=== PATIENT | female | born 1965 | race Caucasian/White ===

== ENCOUNTER → 2018-08-13 | Day surgery (SDC) | payer BC ==
[~2018-08-13] MED LIST: Bupivacaine 0.25% 10 ML SDV ONE; EPINEPHrine 1 MG/ML 30 ML MDV IV ONE; EPINEPHrine 1 MG/ML SDV ONE; Lactated Ringers 1,000 ML IV SCH; Lidocaine 1% 2 ML ONE; Lidocaine 1%/Sod Bicarbonate in NS 8.4% 1 ML Syringe IDERM PRN; Ropivacaine 0.5% 5 MG/ML 30 ML SDV ONE; Sodium Chloride 0.9% 10 ML Syringe FLUSH PRN
--- NOTE | 2018-08-13 10:18 | PCM.SN ---
- Free Text/Narrative Note: Anesthesia Note: After discussing health history with patient, topic of adrenal insufficiency came about along with patient taking herbal supplement of cortisol. In review of chart no information noted in regards to the adrenal insufficiency. Discussion present with Danielle FITZGERALD, Dr. Arriola, Patient, and patient's , regarding further evaluation and follow up on patient's adrenal glands function is warranted and to the patient's best interest and safety. Patient exhibited emotional frustration, and concerns regarding financial/ insurance issues, time element for shoulder healing, etc... Anesthesia provided verbal reassurance and education on the benefits and priorities of patient's safety and ability to provide safety and excellence with optimal preoperative work up. Thank you, Britt BUSH
[2018-08-13 10:37] VITALS: BP 125/69
== END | disposition home or self-care (01) ==
LOC: JD.SDS 07:39
PROVIDERS: ATTEND Orthopaedic Surgery
DX: E27.40 Unspecified adrenocortical insufficiency (principal); Z53.29 Procedure and treatment not carried out because of patient's decision for other reasons; Z91.041 Radiographic dye allergy status; Z88.8 Allergy status to other drugs, medicaments and biological substances; Z91.048 Other nonmedicinal substance allergy status
CPT/HCPCS: J0171; J2001; J2795; J3490

== ENCOUNTER 2019-12-22 08:00 | Inpatient (IN) | payer BC ==
[~2019-12-22 08:00] MED LIST changes: -Bupivacaine 0.25% 10 ML SDV ONE; -EPINEPHrine 1 MG/ML 30 ML MDV IV ONE; -EPINEPHrine 1 MG/ML SDV ONE; -Lidocaine 1% 2 ML ONE; -Ropivacaine 0.5% 5 MG/ML 30 ML SDV ONE
[2019-12-23] MEDS ORDERED: Lactated Ringers 1,000 ML IV SCH (00:01)
[2019-12-23] MEDS ORDERED: Sodium Chloride 0.9% 10 ML Syringe FLUSH PRN (00:01)
[2019-12-23] MEDS ORDERED: Scopolamine 1.5 MG Transdermal Patch TRDERM SCH (00:01)
[2019-12-23] MEDS ORDERED: Lidocaine 1%/Sod Bicarbonate in NS 8.4% 1 ML Syringe IDERM PRN (00:01)
[2019-12-23] MEDS ORDERED: Ondansetron 4 MG/2 ML SDV IVPUSH PRN ×2 (07:23→14:19)
[2019-12-23] MEDS ORDERED: Morphine 2 MG/ML SYRINGE IVPUSH PRN (07:23)
[2019-12-23] MEDS ORDERED: Cyclobenzaprine 10 MG Tab PO PRN (07:23)
[2019-12-23] MEDS ORDERED: Sennosides 8.6 MG Tab PO PRN (07:23)
[2019-12-23] MEDS ORDERED: Bisacodyl 5 MG Tab PO PRN (07:23)
[2019-12-23] MEDS ORDERED: Naloxone 0.4 MG/ML SDV IVPUSH PRN (07:23)
[2019-12-23] MEDS ORDERED: Magnesium Hydroxide 400 MG/5 ML Susp 30 ML Cup PO PRN (07:23)
[2019-12-23] MEDS ORDERED: Pregabalin 25 MG Cap PO SCH (09:30)
[2019-12-23] MEDS ORDERED: Acetaminophen 325 MG Tab PO SCH (09:30)
[2019-12-23] MEDS ORDERED: oxyCODONE ER 10 MG TAB.ER PO SCH (09:30)
[2019-12-23] MEDS ORDERED: fentaNYL 100 MCG/2 ML SDV ONE (09:48)
--- NOTE | 2019-12-23 10:40 | PCM.PREANE ---
Preanesthetic Assessment - Procedure Proposed Procedure: right total hip arthroplasty - Anesthesia/Transfusion/Family Hx Anesthesia History: Prior Anesthesia Reaction Family History of Anesthesia Reaction: No Transfusion History: No Prior Transfusion(s) Intubation History: Unknown - Review of Systems General: No Symptoms Pulmonary: No Symptoms Cardiovascular: No Symptoms Gastrointestinal: No Symptoms Neurological: No Symptoms Other: Reports: Easy Bruising, Diabetes, Liver Problems (fatty liver), Thyroid Problems (goiter), Sinus Problem (plugged up alot), Throat Pain (when press on goiter) - Physical Assessment NPO Status Date: 12/22/19 NPO Status Time: 23:45 Vital Signs: Last Vital Signs Temp 98.2 F 12/23/19 09:50 Pulse 85 12/23/19 09:50 Resp 16 12/23/19 09:50 BP 126/75 12/23/19 09:50 Pulse Ox 96 12/23/19 09:50 Height: 5 ft 7 in Weight: 113.398 kg ASA Class: 2 Mental Status: Alert & Oriented x3 Airway Class: Mallampati = 1 Dentition: Reports: Normal Dentition Thyro-Mental Finger Breadths: 3 Mouth Opening Finger Breadths: 3 ROM/Head Extension: Full Lungs: Clear to Auscultation, Normal Respiratory Effort Cardiovascular: Regular Rate, Regular Rhythm - Lab Values: Laboratory Last Values POC Glucose 169 mg/dL (70-105) H 12/23/19 10:17 MRSA (PCR) Negative 12/07/19 12:31 - Allergies Allergies/Adverse Reactions: Allergies Allergy/AdvReac Type Severity Reaction Status Date / Time Iodinated Contrast Media Allergy Hives Verified 12/22/19 14:49 [Iodinated Contrast- Oral and IV Dye] mold Allergy Cannot Verified 12/22/19 14:49 Remember shellfish derived Allergy Cannot Verified 12/22/19 14:49 Remember thimerosal Allergy Cannot Verified 12/22/19 14:49 Remember mmr Allergy Cannot Uncoded 10/23/18 16:30 Remember - Blood Blood Available: Yes - Acknowledgements Anesthesia Type Planned: Spinal Pt an Appropriate Candidate for the Planned Anesthesia: Yes Alternatives and Risks of Anesthesia Discussed w Pt/Guardian: Yes Pt/Guardian Understands and Agrees with Anesthesia Plan: Yes PreAnesthesia Questionnaire HEENT History: Reports: Impaired Vision, Sinusitis, Other (See Below) Other HEENT History: deviated septum, sinus disease Cardiovascular History: Reports: Heart Murmur, Other (See Below) Other Cardiovascular History: lower extremity edema, ventricular bigeminy Respiratory History: Reports: Bronchitis, Recurrent Gastrointestinal History: Reports: Other (See Below) Other Gastrointestinal History: gilbert's syndrome, elevated bilirubin Genitourinary History: Reports: None CARDIOLOGY PHYSICIAN History: Reports: Ectopic , Polycystic Ovaries Musculoskeletal History: Reports: Other (See Below) Other Musculoskeletal History: right shoulder injury, right wrist injury, right meniscus tear with repair, shoulder disclocation, chronic hip pian, IT band tendonitis to the right Neurological History: Reports: Headaches, Chronic, Vertigo Psychiatric History: Reports: None Endocrine/Metabolic History: Reports: Diabetes, Type II, Obesity/BMI 30+, Vitamin D Deficiency, Other (See Below) Other Endocrine/Metabolic History: thyroid growth, adrenal insufficiency, cortisol deficiency Hematologic History: Reports: None Immunologic History: Reports: None Oncologic (Cancer) History: Reports: None Dermatologic History: Reports: Other (See Below) Other Dermatologic History: hand splinter abcesses, easy bruisibilty - Past Surgical History Head Surgeries/Procedures: Reports: None HEENT Surgical History: Reports: None, Adenoidectomy, Naso-Sinus Surgery, Tonsillectomy Cardiovascular Surgical History: Reports: None Respiratory Surgical History: Reports: None GI Surgical History: Reports: Appendectomy, Cholecystectomy, Colonoscopy, EGD Female Surgical History: Reports: D&C, Other (See Below) Other Female Surgeries/Procedures: bladder sling Male Surgical History: Reports: None Endocrine Surgical History: Reports: None Neurological Surgical History: Reports: None Musculoskeletal Surgical History: Reports: Arthroscopic Knee, Shoulder Surgery Oncologic Surgical History: Reports: None - SUBSTANCE USE Smoking Status *Q: Never Smoker Tobacco Use Within Last Twelve Months: No Second Hand Smoke Exposure: No Days Per Week of Alcohol Use: 0 Recreational Drug Use History: No - HOME MEDS Home Medications: Home Meds Potassium Chloride [Klor-Con 10] 10 meq PO BID 08/12/18 [History] metFORMIN HCl [Metformin HCl ER] 500 mg PO TID 08/12/18 [History] Adrenal Cap 1 cap PO DAILY 10/23/18 [History] Cholecalciferol (Vitamin D3) [Vitamin D3] 5,000 unit PO DAILY 10/23/18 [History] Estradiol [Estrogel] 1 dose TOP DAILY 12/22/19 [History] Furosemide 40 mg PO BID 12/22/19 [History] Magnesium Oxide [Magnesium] 500 mg PO BID 12/22/19 [History] Tobramycin/Dexamethasone [Tobradex Eye Drops] 1 drop EYEBOTH ASDIRECTED PRN [History] traMADol HCl [Tramadol HCl] 50 mg PO Q6H PRN 12/22/19 [History] - CURRENT (IN HOUSE) MEDS Current Meds: Current Medications Acetaminophen (Tylenol) 975 mg PO ONETIME [facility] Stop: 12/23/19 12:00 Bisacodyl (Dulcolax) 5 mg PO DAILY PRN PRN Reason: Constipation Cyclobenzaprine HCl (Flexeril) 10 mg PO TID PRN PRN Reason: Spasms Docusate Sodium (Colace) 100 mg PO BID FADI Famotidine (Pepcid) 20 mg PO Q12H [facility] Lactated Ringer's (Ringers, Lactated) 1,000 mls @ 125 mls/hr IV ASDIRECTED [facility] Stop: 12/23/19 23:00 Last Admin: 12/23/19 10:25 Dose: 125 mls/hr Cefazolin Sodium/Dextrose 2 gm (/ Premix) 50 mls @ 100 mls/hr IV Q8H [facility] Stop: 12/23/19 23:59 Ketorolac Tromethamine (Toradol) 15 mg IVPUSH Q6H PRN PRN Reason: Pain Lidocaine/Sodium Bicarbonate (Buffered Lidocaine 1% In Ns 8.4%) 0.25 ml IDERM ONETIME PRN PRN Reason: Prior to IV Start Stop: 12/23/19 18:00 Last Admin: 12/23/19 10:25 Dose: 0.25 ml Magnesium Hydroxide (Milk Of Magnesia) 30 ml PO BID PRN PRN Reason: Constipation Morphine Sulfate (Morphine) 2 mg IVPUSH Q2H PRN PRN Reason: Breakthrough Pain Naloxone HCl (Narcan) 0.1 mg IVPUSH Q5M PRN PRN Reason: Oversedation Ondansetron HCl (Zofran) 4 mg IVPUSH Q6H PRN PRN Reason: Nausea/Vomiting Oxycodone HCl (Oxycontin) 10 mg PO ONETIME [facility] Stop: 12/23/19 12:00 Oxycodone/Acetaminophen (Percocet 325-5 Mg) 1 - 2 tab PO Q4H PRN PRN Reason: Pain Pregabalin (Lyrica) 50 mg PO ONETIME [facility] Stop: 12/23/19 18:00 Rivaroxaban (Xarelto) 10 mg PO DAILY [facility] Scopolamine (Transderm-Scop) 1.5 mg TRDERM ONETIME [facility] Stop: 12/23/19 16:00 Senna (Senna) 8.6 mg PO BID PRN PRN Reason: Constipation Sodium Chloride (Saline Flush) 10 ml FLUSH ASDIRECTED PRN PRN Reason: Keep Vein Open Stop: 12/23/19 18:00 Discontinued Medications Morphine Sulfate 8 mg/Epinephrine HCl 0.3 mg/Cefuroxime Sodium 750 mg/Ketorolac Tromethamine 30 mg/Sodium Chloride 7.9 ml 0 mg .XX ONETIME ONE Stop: 12/23/19 10:01 Fentanyl (Sublimaze) Confirm Administered Dose 100 mcg .ROUTE .STK-MED ONE Stop: 12/23/19 09:49 Lactated Ringer's (Ringers, Lactated) 1,000 mls @ 125 mls/hr IV ASDIRECTED [facility] Stop: 12/22/19 23:00 Lidocaine/Sodium Bicarbonate (Buffered Lidocaine 1% In Ns 8.4%) 0.25 ml IDERM ONETIME PRN PRN Reason: Prior to IV Start Stop: 12/22/19 23:00 Sodium Chloride (Saline Flush) 10 ml FLUSH ASDIRECTED PRN PRN Reason: Keep Vein Open Stop: 12/22/19 23:00
[2019-12-23] MEDS ORDERED: Midazolam 1 MG/ML 2 ML SDV ONE ×2 (10:55→12:12)
[2019-12-23] MEDS ORDERED: Propofol 200 MG/20 ML SDV ONE ×2 (10:55→13:20)
--- NOTE | 2019-12-23 11:19 | PCM.CONS ---
H&P History of Present Illness - General Date of Service: 12/23/19 Admit Problem/Dx: Admission Diagnosis/Problem Admission Diagnosis/Problem Osteoarthritis of hip Source of Information: Patient, Old Records, Provider, RN, RN Notes Reviewed History Limitations: Reports: No Limitations - History of Present Illness Initial Comments - Free Text/Narative: Nelly Roberts is a 54 yo female patient of Dr. Arriola who is post-operative day 0 of right TKA. Hospital medicine was consulted for post-operative medical care of the following listed medical conditions. At this time she is resting comfortably in bed. Pain is controlled. She denies any chest pain, shortness of breath, palpitations, nausea, or vomiting. She is reporting some throat pain. She carries a history of: BPPV, Chronic low back pain, questionable hypercortisolemia, Hyperbilirubinemia, [place] disease, Cardiac murmur, Thyroid nodule, Vitamin D deficiency, Type II DM, Obesity, Bigeminy, TIA, Lower extremity edema, Headache, Hypokalemia, PCOS, Fatty liver disease, Goiter, Deviated septum, Recurrent Bronchitis, Ectopic , Vertigo, Adrenal insufficiency, Easy bruising, Prior bladder sling placement. She was never a smoker. She is a full code. Her primary care provider is Manoj Ford PA-C . - Related Data Allergies/Adverse Reactions: Allergies Allergy/AdvReac Type Severity Reaction Status Date / Time Iodinated Contrast Media Allergy Hives Verified 12/22/19 14:49 [Iodinated Contrast- Oral and IV Dye] mold Allergy Cannot Verified 12/22/19 14:49 Remember shellfish derived Allergy Cannot Verified 12/22/19 14:49 Remember thimerosal Allergy Cannot Verified 12/22/19 14:49 Remember mmr Allergy Cannot Uncoded 10/23/18 16:30 Remember Home Medications: Home Meds Potassium Chloride [Klor-Con 10] 10 meq PO BID 08/12/18 [History] metFORMIN HCl [Metformin HCl ER] 500 mg PO TID 08/12/18 [History] Adrenal Cap 1 cap PO DAILY 10/23/18 [History] Cholecalciferol (Vitamin D3) [Vitamin D3] 5,000 unit PO DAILY 10/23/18 [History] Estradiol [Estrogel] 1 dose TOP DAILY 12/22/19 [History] Furosemide 40 mg PO BID 12/22/19 [History] Magnesium Oxide [Magnesium] 500 mg PO BID 12/22/19 [History] Tobramycin/Dexamethasone [Tobradex Eye Drops] 1 drop EYEBOTH ASDIRECTED PRN [History] traMADol HCl [Tramadol HCl] 50 mg PO Q6H PRN 12/22/19 [History] Past Medical History HEENT History: Reports: Impaired Vision, Sinusitis, Other (See Below) Other HEENT History: deviated septum, sinus disease Cardiovascular History: Reports: Heart Murmur, Other (See Below) Other Cardiovascular History: lower extremity edema, ventricular bigeminy Respiratory History: Reports: Bronchitis, Recurrent Gastrointestinal History: Reports: Other (See Below) Other Gastrointestinal History: gilbert's syndrome, elevated bilirubin Genitourinary History: Reports: None TIRE REPAIRER History: Reports: Ectopic , Polycystic Ovaries Musculoskeletal History: Reports: Other (See Below) Other Musculoskeletal History: right shoulder injury, right wrist injury, right meniscus tear with repair, shoulder disclocation, chronic hip pian, IT band tendonitis to the right Neurological History: Reports: Headaches, Chronic, Vertigo Psychiatric History: Reports: None Endocrine/Metabolic History: Reports: Diabetes, Type II, Obesity/BMI 30+, Vitamin D Deficiency, Other (See Below) Other Endocrine/Metabolic History: thyroid growth, adrenal insufficiency, cortisol deficiency Hematologic History: Reports: None Immunologic History: Reports: None Oncologic (Cancer) History: Reports: None Dermatologic History: Reports: Other (See Below) Other Dermatologic History: hand splinter abcesses, easy bruisibilty - Past Surgical History Head Surgeries/Procedures: Reports: None HEENT Surgical History: Reports: None, Adenoidectomy, Naso-Sinus Surgery, Tonsillectomy Cardiovascular Surgical History: Reports: None Respiratory Surgical History: Reports: None GI Surgical History: Reports: Appendectomy, Cholecystectomy, Colonoscopy, EGD Female Surgical History: Reports: D&C, Other (See Below) Other Female Surgeries/Procedures: bladder sling Male Surgical History: Reports: None Endocrine Surgical History: Reports: None Neurological Surgical History: Reports: None Musculoskeletal Surgical History: Reports: Arthroscopic Knee, Shoulder Surgery Oncologic Surgical History: Reports: None Social & Family History - Tobacco Use Smoking Status *Q: Never Smoker Second Hand Smoke Exposure: No - Caffeine Use Caffeine Use: Reports: Coffee - Alcohol Use Days Per Week of Alcohol Use: 0 - Recreational Drug Use Recreational Drug Use: No Drug Use in Last 12 Months: No H&P Review of Systems - Review of Systems: Review Of Systems: See Below General: Reports: No Symptoms. Denies: Fever, Chills HEENT: Reports: Sore Throat. Denies: Headaches Pulmonary: Reports: No Symptoms. Denies: Shortness of Breath, Wheezing, Cough, Sputum Cardiovascular: Reports: Edema (chronic). Denies: Chest Pain, Palpitations Gastrointestinal: Reports: No Symptoms. Denies: Abdominal Pain, Constipation, Diarrhea, Nausea, Vomiting Genitourinary: Reports: No Symptoms. Denies: Pain Musculoskeletal: Reports: Leg Pain Skin: Reports: No Symptoms. Denies: Cyanosis Psychiatric: Reports: No Symptoms Neurological: Reports: Difficulty Walking, Gait Disturbance. Denies: Confusion Hematologic/Lymphatic: Reports: No Symptoms Immunologic: Reports: No Symptoms Exam - Exam Exam: See Below - Vital Signs Vital Signs: Last Vital Signs Temp 98.2 F 12/23/19 09:50 Pulse 85 12/23/19 09:50 Resp 16 12/23/19 09:50 BP 126/75 12/23/19 09:50 Pulse Ox 96 12/23/19 09:50 Weight: 250 lb - Exam Quality Assessment: Supplemental Oxygen, DVT Prophylaxis General: Alert, Oriented, Cooperative. No: Mild Distress HEENT: Conjunctiva Clear, EACs Clear, EOMI, Hearing Intact, Mucosa Moist & [place] , Normal Nasal Septum, Posterior Pharynx Clear, PERRLA Neck: Supple, Trachea Midline Lungs: Clear to Auscultation, Normal Respiratory Effort Cardiovascular: Regular Rate, Regular Rhythm, Systolic Murmur GI/Abdominal Exam: Normal Bowel Sounds, Soft, Non-Tender, No Distention (Female) Exam: Deferred Rectal (Female) Exam: Deferred Back Exam: Normal Inspection, Full Range of Motion Extremities: Normal Capillary Refill, Pedal Edema, Leg Pain, Limited Range of Motion, Other (Bandage in place on left leg. Bandage is dry and intact. Cooling pack in place.) Peripheral Pulses: 2+: Radial (L), Radial (R), Dorsalis Pedis (L), Dorsalis Pedis (R) Skin: Warm, Dry, Intact Neurological: Cranial Nerves Intact (Grossly ) Neuro Extensive - Mental Status: Alert, Oriented x3 - Patient Data Lab Results Last 24 hrs: Laboratory Results - last 24 hr 12/23/19 Range/Units 10:17 POC Glucose 169 H (70-105) mg/dL Sepsis Event Note - Focused Exam Vital Signs: Vital Signs Temp Pulse Resp BP Pulse Ox 12/23/19 09:50 98.2 F 85 16 126/75 96 Date Exam was Performed: 12/23/19 Time Exam was Performed: 16:00 Consult PN Assessment/Plan POD#: 0 Procedures: Procedures ANTINUCLEAR ANTIBODIES (09/15/19) ARTHROSCOP ROTATOR CUFF REPR (10/27/18) ASSAY OF FREE THYROXINE (08/05/19) ASSAY OF PREALBUMIN (12/08/19) ASSAY OF SERUM ALBUMIN (12/08/19) ASSAY OF SERUM POTASSIUM (11/18/19) ASSAY OF TROPONIN QUANT (10/27/18) ASSAY OF URINE CREATININE (12/10/19) ASSAY THYROID STIM HORMONE (08/05/19) BREAST TOMOSYNTHESIS BI (07/02/19) C-REACTIVE PROTEIN (09/15/19) CCP ANTIBODY (09/15/19) CHEST X-RAY 1 VIEW FRONTAL (08/07/15) CHEST X-RAY 2VW FRONTAL&LATL (04/15/17) CHORIONIC GONADOTROPIN ASSAY (08/07/15) COMPLETE CBC AUTOMATED (04/15/17) COMPLETE CBC W/AUTO DIFF WBC (12/08/19) COMPREHEN METABOLIC PANEL (11/10/19) CORTISOL FREE (12/10/19) CREATINE MB FRACTION (10/27/18) CT ABD & PELV W/CONTRAST (11/23/19) CT HEAD/BRAIN W/O DYE (08/07/15) CT MAXILLOFACIAL W/O DYE (10/26/14) DRAIN/INJ JOINT/BURSA W/O US (10/05/19) ELECTROCARDIOGRAM TRACING (10/27/18) EMERGENCY DEPT VISIT (08/07/15) GLYCOSYLATED HEMOGLOBIN TEST (12/08/19) HYDRATE IV INFUSION ADD-ON (08/07/15) LIPID PANEL (09/15/18) MED NUTRITION INDIV SUBSEQ (10/13/14) MEDICAL NUTRITION INDIV IN (09/13/14) METABOLIC PANEL TOTAL CA (12/08/19) MICROBE SUSCEPTIBLE RENETTA (10/16/18) MICROSOMAL ANTIBODY EACH (08/05/19) MR-STAPH DNA AMP PROBE (10/27/18) MRI BRAIN STEM W/O DYE (02/07/16) MRI JNT OF LWR EXTRE W/O DYE (09/02/14) MRI JOINT UPR EXTREM W/DYE (09/02/14) MRI JOINT UPR EXTREM W/O DYE (07/20/18) MRI LUMBAR SPINE W/O DYE (11/10/18) MRI NECK SPINE W/O DYE (10/15/19) NEEDLE LOCALIZATION BY XRAY (09/02/14) NEUROMUSCULAR REEDUCATION (10/03/15) PROTHROMBIN TIME (12/08/19) PT EVALUATION (09/18/15) RBC SED RATE AUTOMATED (09/15/19) RHEUMATOID FACTOR TEST QUAL (09/15/19) ROUTINE VENIPUNCTURE (12/08/19) SCR MAMMO BI INCL CAD (07/02/19) SHOULDER ARTHROSCOPY/SURGERY (10/27/18) THER/PROPH/DIAG INJ IV PUSH (08/07/15) THROMBOPLASTIN TIME PARTIAL (12/08/19) TOTAL CORTISOL (09/02/18) TX/PRO/DX INJ NEW DRUG ADDON (08/07/15) ULTRASOUND BREAST COMPLETE (09/03/19) URINALYSIS AUTO W/O SCOPE (03/01/19) URINALYSIS AUTO W/SCOPE (10/27/18) URINE BACTERIA CULTURE (10/16/18) URINE CULTURE/COLONY COUNT (10/16/18) URINE TEST (10/27/18) US EXAM OF HEAD AND NECK (09/03/18) VITAMIN D 25 HYDROXY (08/05/19) X-RAY EXAM CHEST 2 VIEWS (12/08/19) X-RAY EXAM HIP UNI 2-3 VIEWS (08/05/19) X-RAY EXAM NECK SPINE 2-3 VW (12/31/18) X-RAY EXAM OF SHOULDER (05/21/18) X-RAY EXAM OF WRIST (05/21/18) (1) S/P total knee arthroplasty SNOMED Code(s): 2567849362484, 677230267, 7697563810768 Code(s): Z96.659 - PRESENCE OF UNSPECIFIED ARTIFICIAL KNEE JOINT Priority: High Current Visit: Yes Qualifiers: Laterality: right Qualified Code(s): Z96.651 - Presence of right artificial knee joint (2) Osteoarthritis SNOMED Code(s): 870697037 Code(s): M19.90 - UNSPECIFIED OSTEOARTHRITIS, UNSPECIFIED SITE Priority: High Current Visit: Yes Qualifiers: Osteoarthritis location: knee Osteoarthritis type: primary Laterality: right Qualified Code(s): M17.11 - Unilateral primary osteoarthritis, right knee (3) Chronic lower back pain SNOMED Code(s): 150244290 Code(s): M54.5 - LOW BACK PAIN; G89.29 - OTHER CHRONIC PAIN Priority: Low Current Visit: No Qualifiers: Back pain laterality: unspecified Sciatica presence: unspecified whether sciatica present Qualified Code(s): M54.5 - Low back pain; G89.29 - Other chronic pain (4) Hyperbilirubinemia SNOMED Code(s): 09433715 Code(s): E80.6 - OTHER DISORDERS OF BILIRUBIN METABOLISM Priority: Medium Current Visit: No (5) [place] disease SNOMED Code(s): 30587926 Code(s): E80.4 - GILBERT SYNDROME Priority: Low Current Visit: No (6) Cardiac murmur SNOMED Code(s): 14610940 Code(s): R01.1 - CARDIAC MURMUR, UNSPECIFIED Priority: Low Current Visit : No (7) Thyroid nodule SNOMED Code(s): 904463434 Code(s): E04.1 - NONTOXIC SINGLE THYROID NODULE Priority: Low Current Visit: No (8) Vitamin D deficiency SNOMED Code(s): 14378021 Code(s): E55.9 - VITAMIN D DEFICIENCY, UNSPECIFIED Priority: Low Current Visit: No (9) Type II diabetes mellitus SNOMED Code(s): 26003947 Code(s): E11.9 - TYPE 2 DIABETES MELLITUS WITHOUT COMPLICATIONS Priority: High Current Visit: Yes Qualifiers: Diabetes mellitus director long term care insulin use: unspecified director long term care insulin use status Diabetes mellitus complication status: with other specified complication Qualified Code(s): E11.69 - Type 2 diabetes mellitus with other specified complication (10) Obesity SNOMED Code(s): 200727844, 107348724 Code(s): E66.9 - OBESITY, UNSPECIFIED Priority: Medium Current Visit: No Qualifiers: Obesity type: unspecified obesity type Obesity classification: adult class 2 (BMI 35 - 39.9) Serious obesity comorbidity presence: without serious comorbidity (11) PCOS (polycystic ovarian syndrome) SNOMED Code(s): 419182029 Code(s): E28.2 - POLYCYSTIC OVARIAN SYNDROME Priority: Medium Current Visit: No (12) Bigeminal rhythm SNOMED Code(s): 81720350 Code(s): I49.9 - CARDIAC ARRHYTHMIA, UNSPECIFIED Priority: Medium Current Visit: No (13) TIA (transient ischemic attack) SNOMED Code(s): 305354741 Code(s): G45.9 - TRANSIENT CEREBRAL ISCHEMIC ATTACK, UNSPECIFIED Priority: Low Current Visit: No (14) Lower extremity edema SNOMED Code(s): 886559262 Code(s): R60.0 - LOCALIZED EDEMA Priority: Low Current Visit: No (15) Headache SNOMED Code(s): 15250487 Code(s): R51 - HEADACHE Priority: Low Current Visit: No Qualifiers: Headache type: unspecified Headache chronicity pattern: unspecified pattern Intractability: not intractable Qualified Code(s): R51 - Headache (16) Hypokalemia SNOMED Code(s): 06106843 Code(s): E87.6 - HYPOKALEMIA Priority: Medium Current Visit: No (17) History of ectopic SNOMED Code(s): 773923659, 780920226 Code(s): Z87.59 - PERSONAL HISTORY OF COMP OF PREG, CHLDBRTH AND THE PUERP Priority: Low Current Visit: No (18) Vertigo SNOMED Code(s): 403381861 Code(s): R42 - DIZZINESS AND GIDDINESS Priority: Low Current Visit: No (19) Goiter SNOMED Code(s): 5845897 Code(s): E04.9 - NONTOXIC GOITER, UNSPECIFIED Priority: Low Current Visit : No (20) Easy bruising Priority: Low Current Visit: No (21) Adrenal insufficiency SNOMED Code(s): 337153312 Code(s): E27.40 - UNSPECIFIED ADRENOCORTICAL INSUFFICIENCY Priority: Medium Current Visit: No Problem List Initiated/Reviewed/Updated: Yes Plan: I/P: Acute: S/P right total knee arthroplasty - post-operative day 0 -DVT prophylaxis and pain management per primary care team -PT/OT -IS/RT -Monitor oxygen saturation -Titrate oxygen as needed -Home medications reviewed -Vital signs stable -Monitor labs -Pre-operative Hgb was 13.8 -Pre-operative GFR was >60 -Pre-operative potassium was 3.4 -Pre-operative A1C was 7.5% -Pre-operative 12-lead EKG shows sinus rhythm with borderline Q-wave in inferior leads. -Baseline bigeminy -Bigeminy, trigeminy, and PACs noted in surgery Osteoarthritis of right knee -Pain management per primary care team Chronic: BPPV Chronic low back pain Suspected hypercortisolemia (listed as cortisol deficiency in pre-op note but this is inaccurate, verified with PCP and endocrinology note) Hyperbilirubinemia [place] disease Cardiac murmur Thyroid nodule Vitamin D deficiency Type II DM, Obesity Bigeminy TIA Lower extremity edema Headache Hypokalemia PCOS Fatty liver disease Goiter Deviated septum Recurrent Bronchitis Ectopic Vertigo Adrenal insufficiency Easy bruising Prior bladder sling placement Plan: Telemetry CM for discharge planning GI prophylaxis Home medications as indicated Other orders as listed above Routine AM labs She is a full code. Her PCP is Manoj Ford PA-C. Thank you for allowing us to participate in the care of this patient!! Requesting Provider: Dr. Arriola Date Consult Requested: 12/23/19 Patient History Reviewed: Yes Admission H&P Reviewed: Yes Notified Requestor: Yes
[2019-12-23] MEDS ORDERED: ceFAZolin 1 GM Vial ONE (11:24)
[2019-12-23] MEDS ORDERED: Lactated Ringers 1,000 ML ONE ×2 (11:49→13:21)
[2019-12-23] MEDS: ceFAZolin 1 GM Vial ONE ×2 (13:04→13:29)
[2019-12-23] MEDS: Morphine 8 MG, EPINEPHrine 0.3 MG, Cefuroxime 750 MG, Ketorolac 30 MG, Sodium Chloride ... ONE ×15 (13:11→15:18)
[2019-12-23] MEDS ORDERED: Phenylephrine/Normal Saline 100 MCG/ML 10 ML Syringe ONE (13:11)
[2019-12-23] MEDS: Bupivacaine 0.25% 10 ML SDV ONE ×2 (13:11→13:33)
[2019-12-23] MEDS: Vancomycin 1 GM SDV ONE ×2 (13:12→13:34)
[2019-12-23] MEDS ORDERED: Dexamethasone/Tobramycin 0.1-0.3% Ophth Susp 5 ML Bottle EYEBOTH PRN (14:11)
[2019-12-23] MEDS ORDERED: HYDROmorphone 0.5 MG/0.5 ML Syringe IVPUSH PRN (14:19)
[2019-12-23] MEDS ORDERED: fentaNYL 100 MCG/2 ML SDV IVPUSH PRN (14:19)
--- NOTE | 2019-12-23 14:22 | PCM.POSTAN ---
POST ANESTHESIA ASSESSMENT - MENTAL STATUS Mental Status: Alert, Oriented - VITAL SIGNS Vital Signs: Last Vital Signs Temp 98.2 F 12/23/19 09:50 Pulse 85 12/23/19 09:50 Resp 16 12/23/19 09:50 BP 126/75 12/23/19 09:50 Pulse Ox 96 12/23/19 09:50 109/76 15 90 97.7 100% - RESPIRATORY Respiratory Status: Respiratory Rate WNL, Airway Patent, O2 Saturation Stable, Supplemental Oxygen - CARDIOVASCULAR CV Status: Pulse Rate WNL, Blood Pressure Stable - GASTROINTESTINAL GI Status: No Symptoms - PAIN Pain Score: 0 - POST OP HYDRATION Hydration Status: Adequate & Stable
--- NOTE | 2019-12-23 16:00 | CR ---
Pelvis and right hip: AP view of the pelvis was obtained as well as crosstable lateral view of the right hip. Comparison: Prior pelvis and left hip study of 08/05/19. Recently placed right hip prosthesis is seen. Components are aligned. Underlying bony structures are intact. No additional abnormality is seen other than soft tissue air from the surgical suture. Impression: 1. Recently placed right hip prosthesis. 2. Nothing acute is otherwise seen. Diagnostic code #2 This report was dictated in [place] Standard Time
[2019-12-23] MEDS: Ketorolac 15 MG/ML SDV IVPUSH PRN (16:05)
[2019-12-23] MEDS: Acetaminophen/oxyCODONE 325-5 MG Tab PO PRN ×2 (16:54→22:32)
[2019-12-23] MEDS: Insulin Lispro 100 Units/ML 3 ML Vial SUBCUT SCH ×2 (17:09→22:10)
[2019-12-23] MEDS ORDERED: ceFAZolin 2 GM in Premix Bag 1 BAG IV SCH (19:00)
[2019-12-23] MEDS: Magnesium Oxide 400 MG Tab PO SCH (20:23)
[2019-12-23] MEDS: Potassium Chloride 10 MEQ Tab.ER PO SCH (20:23)
[2019-12-23] MEDS: Famotidine 20 MG Tab PO SCH (20:24)
[2019-12-23] MEDS: Docusate Sodium 100 MG Cap PO SCH (20:24)
[2019-12-23] MEDS: ceFAZolin 2 GM in Premix Bag 1 BAG IV SCH (20:25)
[2019-12-24] MEDS: ceFAZolin 2 GM in Premix Bag 1 BAG IV SCH ×2 (03:13→11:21)
[2019-12-24] MEDS: Acetaminophen/oxyCODONE 325-5 MG Tab PO PRN ×2 (03:23→08:46)
[2019-12-24] MEDS: Insulin Lispro 100 Units/ML 3 ML Vial SUBCUT SCH ×2 (06:35→12:09)
--- NOTE | 2019-12-24 07:16 | PCM.CONSN ---
- General Info Date of Service: 12/24/19 Admission Dx/Problem (Free Text): Admission Diagnosis/Problem Admission Diagnosis/Problem Osteoarthritis of hip Functional Status: Reports: Pain Controlled, Tolerating Diet, Ambulating, Urinating, Incentive Spirometry. Denies: New Symptoms - Review of Systems General: Reports: No Symptoms. Denies: Fever, Chills HEENT: Reports: Sore Throat (lozenge ordered ). Denies: Headaches Pulmonary: Reports: No Symptoms. Denies: Shortness of Breath, Cough, Wheezing Cardiovascular: Reports: No Symptoms. Denies: Chest Pain, Palpitations Gastrointestinal: Reports: No Symptoms. Denies: Abdominal Pain, Constipation, Diarrhea, Nausea, Vomiting Genitourinary: Reports: No Symptoms. Denies: Pain Musculoskeletal: Reports: Leg Pain (right ) Skin: Reports: No Symptoms. Denies: Cyanosis Neurological: Reports: Difficulty Walking, Gait Disturbance. Denies: Confusion Psychiatric: Reports: No Symptoms - Patient Data Vitals - Most Recent: Last Vital Signs Temp 97.5 F 12/24/19 03:27 Pulse 90 12/24/19 03:27 Resp 18 12/24/19 03:27 BP 112/65 12/24/19 03:27 Pulse Ox 94 L 12/24/19 05:49 Weight - Most Recent: 257 lb 11.2 oz I&O - Last 24 Hours: Intake & Output 12/23/19 12/24/19 12/24/19 22:59 06:59 14:59 Intake Total 490 900 Output Total 600 Balance 490 300 Lab Results Last 24 Hours: Laboratory Results - last 24 hr 12/23/19 12/23/19 12/23/19 Range/Units 10:17 10:19 16:55 WBC (3.98-10.04) K/mm3 RBC (3.98-5.22) M/mm3 Hgb (11.2-15.7) gm/dl Hct (34.1-44.9) % MCV (79.4-94.8) fl MCH (25.6-32.2) pg MCHC (32.2-35.5) g/dl RDW Std Deviation (36.4-46.3) fL Plt Count (182-369) K/mm3 MPV (9.4-12.3) fl Sodium (136-145) mEq/L Potassium (3.5-5.1) mEq/L Chloride (98-107) mEq/L Carbon Dioxide (21-32) mEq/L Anion Gap (5-15) BUN (7-18) mg/dL Creatinine (0.55-1.02) mg/dL Est Cr Clr Drug Dosing mL/min Estimated GFR (MDRD) (>60) mL/min BUN/Creatinine Ratio (14-18) Glucose (74-106) mg/dL POC Glucose 169 H 156 H (70-105) mg/dL Calcium (8.5-10.1) mg/dL Magnesium (1.8-2.4) mg/dl Total Bilirubin (0.2-1.0) mg/dL AST (15-37) U/L ALT (14-59) U/L Alkaline Phosphatase (46-116) U/L Total Protein (6.4-8.2) g/dl Albumin (3.4-5.0) g/dl Globulin gm/dL Albumin/Globulin Ratio (1-2) Blood Type A NEGATIVE Gel Antibody Screen Negative 12/23/19 12/24/19 12/24/19 Range/Units 20:33 05:05 05:05 WBC 7.91 (3.98-10.04) K/mm3 RBC 4.00 (3.98-5.22) M/mm3 Hgb 11.6 D (11.2-15.7) gm/dl Hct 35.6 (34.1-44.9) % MCV 89.0 (79.4-94.8) fl MCH 29.0 (25.6-32.2) pg MCHC 32.6 (32.2-35.5) g/dl RDW Std Deviation 46.9 H (36.4-46.3) fL Plt Count 177 L (182-369) K/mm3 MPV 9.4 (9.4-12.3) fl Sodium 136 (136-145) mEq/L Potassium 4.0 (3.5-5.1) mEq/L Chloride 101 (98-107) mEq/L Carbon Dioxide 27 (21-32) mEq/L Anion Gap 12.0 (5-15) BUN 24 H (7-18) mg/dL Creatinine 0.8 (0.55-1.02) mg/dL Est Cr Clr Drug Dosing 78.18 mL/min Estimated GFR (MDRD) > 60 (>60) mL/min BUN/Creatinine Ratio 30.0 H (14-18) Glucose 179 H (74-106) mg/dL POC Glucose 156 H (70-105) mg/dL Calcium 8.4 L (8.5-10.1) mg/dL Magnesium (1.8-2.4) mg/dl Total Bilirubin 1.2 H (0.2-1.0) mg/dL AST 43 H (15-37) U/L ALT 40 (14-59) U/L Alkaline Phosphatase 60 (46-116) U/L Total Protein 5.9 L (6.4-8.2) g/dl Albumin 3.0 L (3.4-5.0) g/dl Globulin 2.9 gm/dL Albumin/Globulin Ratio 1.0 (1-2) Blood Type Gel Antibody Screen 12/24/19 12/24/19 Range/Units 05:05 06:21 WBC (3.98-10.04) K/mm3 RBC (3.98-5.22) M/mm3 Hgb (11.2-15.7) gm/dl Hct (34.1-44.9) % MCV (79.4-94.8) fl MCH (25.6-32.2) pg MCHC (32.2-35.5) g/dl RDW Std Deviation (36.4-46.3) fL Plt Count (182-369) K/mm3 MPV (9.4-12.3) fl Sodium (136-145) mEq/L Potassium (3.5-5.1) mEq/L Chloride (98-107) mEq/L Carbon Dioxide (21-32) mEq/L Anion Gap (5-15) BUN (7-18) mg/dL Creatinine (0.55-1.02) mg/dL Est Cr Clr Drug Dosing mL/min Estimated GFR (MDRD) (>60) mL/min BUN/Creatinine Ratio (14-18) Glucose (74-106) mg/dL POC Glucose 142 H (70-105) mg/dL Calcium (8.5-10.1) mg/dL Magnesium 1.9 (1.8-2.4) mg/dl Total Bilirubin (0.2-1.0) mg/dL AST (15-37) U/L ALT (14-59) U/L Alkaline Phosphatase (46-116) U/L Total Protein (6.4-8.2) g/dl Albumin (3.4-5.0) g/dl Globulin gm/dL Albumin/Globulin Ratio (1-2) Blood Type Gel Antibody Screen Med Orders - Current: Current Medications Bisacodyl (Dulcolax) 5 mg PO DAILY PRN PRN Reason: Constipation Cholecalciferol (Vitamin D3) 5,000 unit PO DAILY [facility] Cyclobenzaprine HCl (Flexeril) 10 mg PO TID PRN PRN Reason: Spasms Docusate Sodium (Colace) 100 mg PO BID [facility] Last Admin: 12/23/19 20:24 Dose: 100 mg Famotidine (Pepcid) 20 mg PO Q12H [facility] Last Admin: 12/23/19 20:24 Dose: 20 mg Cefazolin Sodium/Dextrose 2 gm (/ Premix) 50 mls @ 100 mls/hr IV Q8H [facility] Stop: 12/24/19 12:29 Last Admin: 12/24/19 03:13 Dose: 100 mls/hr Insulin Human Lispro (Humalog) 0 unit SUBCUT QIDACANDBED [facility]; Protocol Last Admin: 12/24/19 06:35 Dose: Not Given Ketorolac Tromethamine (Toradol) 15 mg IVPUSH Q6H PRN PRN Reason: Pain Last Admin: 12/23/19 16:05 Dose: 15 mg Magnesium Hydroxide (Milk Of Magnesia) 30 ml PO BID PRN PRN Reason: Constipation Magnesium Oxide (Magnesium Oxide) 400 mg PO BID [facility] Last Admin: 12/23/19 20:23 Dose: 400 mg Morphine Sulfate (Morphine) 2 mg IVPUSH Q2H PRN PRN Reason: Breakthrough Pain Naloxone HCl (Narcan) 0.1 mg IVPUSH Q5M PRN PRN Reason: Oversedation Ondansetron HCl (Zofran) 4 mg IVPUSH Q6H PRN PRN Reason: Nausea/Vomiting Oxycodone/Acetaminophen (Percocet 325-5 Mg) 1 - 2 tab PO Q4H PRN PRN Reason: Pain Last Admin: 12/24/19 03:23 Dose: 2 tab Potassium Chloride (Klor-Con 10) 10 meq PO BID [facility] Last Admin: 12/23/19 20:23 Dose: 10 meq Rivaroxaban (Xarelto) 10 mg PO DAILY [facility] Senna (Senna) 8.6 mg PO BID PRN PRN Reason: Constipation Tobramycin/Dexamethasone (Tobradex Ophth Susp) 0 ml EYEBOTH ASDIRECTED PRN PRN Reason: as directed Discontinued Medications Acetaminophen (Tylenol) 975 mg PO ONETIME [facility] Stop: 12/23/19 12:00 Bupivacaine HCl (Sensorcaine-Mpf 0.25%) Confirm Administered Dose 30 ml .ROUTE .STK-MED ONE Stop: 12/23/19 11:26 Last Admin: 12/23/19 13:33 Dose: 30 ml Cefazolin Sodium (Ancef) Confirm Administered Dose 2 gm .ROUTE .STK-[facility] Stop: 12/23/19 10:59 Last Admin: 12/23/19 13:29 Dose: 2 gm Cefazolin Sodium (Ancef) Confirm Administered Dose 2 gm .ROUTE .[facility] Stop: 12/23/19 11:25 Morphine Sulfate 8 mg/Epinephrine HCl 0.3 mg/Cefuroxime Sodium 750 mg/Ketorolac Tromethamine 30 mg/Sodium Chloride 7.9 ml 0 mg .XX ONETIME ONE Stop: 12/23/19 10:01 Last Admin: 12/23/19 15:18 Dose: Not Given Fentanyl (Sublimaze) Confirm Administered Dose 100 mcg .ROUTE .STK-[facility] ONE Stop: 12/23/19 09:49 Fentanyl (Sublimaze) 50 mcg IVPUSH Q5M PRN PRN Reason: Pain Hydromorphone HCl (Dilaudid) 0.5 mg IVPUSH Q10M PRN PRN Reason: Pain (severe 7-10) Lactated Ringer's (Ringers, Lactated) 1,000 mls @ 125 mls/hr IV ASDIRECTED [facility] Stop: 12/22/19 23:00 Lactated Ringer's (Ringers, Lactated) 1,000 mls @ 125 mls/hr IV ASDIRECTED [facility] Stop: 12/23/19 23:00 Last Admin: 12/23/19 10:25 Dose: 125 mls/hr Cefazolin Sodium/Dextrose 2 gm (/ Premix) 50 mls @ 100 mls/hr IV Q8H [facility] Stop: 12/24/19 11:29 Last Admin: 12/23/19 19:58 Dose: Not Given Lactated Ringer's (Ringers, Lactated) Confirm Administered Dose 1,000 mls @ as directed .ROUTE .ST-MED ONE Stop: 12/23/19 11:50 Lactated Ringer's (Ringers, Lactated) Confirm Administered Dose 1,000 mls @ as directed .ROUTE .[facility] Stop: 12/23/19 13:22 Lidocaine/Sodium Bicarbonate (Buffered Lidocaine 1% In Ns 8.4%) 0.25 ml IDERM ONETIME PRN PRN Reason: Prior to IV Start Stop: 12/22/19 23:00 Lidocaine/Sodium Bicarbonate (Buffered Lidocaine 1% In Ns 8.4%) 0.25 ml IDERM ONETIME PRN PRN Reason: Prior to IV Start Stop: 12/23/19 18:00 Last Admin: 12/23/19 10:25 Dose: 0.25 ml Midazolam HCl (Versed 1 Mg/Ml) Confirm Administered Dose 2 mg .ROUTE .[facility] Stop: 12/23/19 10:56 Midazolam HCl (Versed 1 Mg/Ml) Confirm Administered Dose 2 mg .ROUTE .[facility] Stop: 12/23/19 12:13 Ondansetron HCl (Zofran) 4 mg IVPUSH ONETIME PRN PRN Reason: Nausea/Vomiting Oxycodone HCl (Oxycontin) 10 mg PO ONETIME [facility] Stop: 12/23/19 12:00 Last Admin: 12/23/19 10:38 Dose: 10 mg Phenylephrine HCl (Phenylephrine In Ns 100 Mcg/Ml) Confirm Administered Dose 1 mg .ROUTE .[facility] Stop: 12/23/19 13:12 Pregabalin (Lyrica) 50 mg PO ONETIME [facility] Stop: 12/23/19 18:00 Last Admin: 12/23/19 10:37 Dose: 50 mg Propofol (Diprivan 20 Ml) Confirm Administered Dose 600 mg .ROUTE .[facility] Stop: 12/23/19 10:56 Propofol (Diprivan 20 Ml) Confirm Administered Dose 400 mg .ROUTE .ST-MED ONE Stop: 12/23/19 13:21 Scopolamine (Transderm-Scop) 1.5 mg TRDERM ONETIME [facility] Stop: 12/23/19 16:00 Last Admin: 12/23/19 10:39 Dose: 1.5 mg Sodium Chloride (Saline Flush) 10 ml FLUSH ASDIRECTED PRN PRN Reason: Keep Vein Open Stop: 12/22/19 23:00 Sodium Chloride (Saline Flush) 10 ml FLUSH ASDIRECTED PRN PRN Reason: Keep Vein Open Stop: 12/23/19 18:00 Tranexamic Acid (Cyklokapron) Confirm Administered Dose 1,000 mg .ROUTE .STK- MED ONE Stop: 12/23/19 11:25 Last Admin: 12/23/19 13:34 Dose: 1,000 mg Vancomycin HCl (Vancomycin) Confirm Administered Dose 1 gm .ROUTE .STK-MED ONE Stop: 12/23/19 11:25 Last Admin: 12/23/19 13:34 Dose: 1 gm - Exam Quality Assessment: DVT Prophylaxis General: Alert, Oriented, Cooperative, No Acute Distress HEENT: Pupils Equal, Pupils Reactive, Mucous Membr. Moist/[place] Neck: Supple, Trachea Midline Lungs: Clear to Auscultation, Normal Respiratory Effort Cardiovascular: Regular Rate, Regular Rhythm GI/Abdominal Exam: Normal Bowel Sounds, Soft, Non-Tender, No Distention (Female) Exam: Deferred Back Exam: Normal Inspection, Full Range of Motion Extremities: Normal Capillary Refill, Leg Pain, Limited Range of Motion, Other ( Bandage in place on right leg. Cooling pack in place. ) Peripheral Pulses: 2+: Radial (L), Radial (R), Dorsalis Pedis (L), Dorsalis Pedis (R) Skin: Warm, Dry, Intact Wound/Incisions: Dressing Dry and Intact Neurological: No New Focal Deficit Psy/Mental Status: Alert, Normal Affect, Normal Mood Sepsis Event Note - Evaluation Sepsis Screening Result: No Definite Risk - Focused Exam Vital Signs: Vital Signs Temp Temp Pulse Resp BP BP Pulse Ox 12/24/19 05:49 12/24/19 03:27 97.5 F 90 18 112/65 95 12/24/19 00:00 98.8 F 16 132/85 93 L 12/23/19 20:43 12/23/19 20:21 97.9 F 93 18 102/58 L 95 Pulse Ox Pulse Ox 12/24/19 05:49 94 L 12/24/19 03:27 12/24/19 00:00 12/23/19 20:43 92 L 12/23/19 20:21 Date Exam was Performed: 12/24/19 Time Exam was Performed: 11:33 Consult PN Assessment/Plan POD#: 1 Procedures: Procedures ANTINUCLEAR ANTIBODIES (09/15/19) ARTHROSCOP ROTATOR CUFF REPR (10/27/18) ASSAY OF FREE THYROXINE (08/05/19) ASSAY OF PREALBUMIN (12/08/19) ASSAY OF SERUM ALBUMIN (12/08/19) ASSAY OF SERUM POTASSIUM (11/18/19) ASSAY OF TROPONIN QUANT (10/27/18) ASSAY OF URINE CREATININE (12/10/19) ASSAY THYROID STIM HORMONE (08/05/19) BREAST TOMOSYNTHESIS BI (07/02/19) C-REACTIVE PROTEIN (09/15/19) CCP ANTIBODY (09/15/19) CHEST X-RAY 1 VIEW FRONTAL (08/07/15) CHEST X-RAY 2VW FRONTAL&LATL (04/15/17) CHORIONIC GONADOTROPIN ASSAY (08/07/15) COMPLETE CBC AUTOMATED (04/15/17) COMPLETE CBC W/AUTO DIFF WBC (12/08/19) COMPREHEN METABOLIC PANEL (11/10/19) CORTISOL FREE (12/10/19) CREATINE MB FRACTION (10/27/18) CT ABD & PELV W/CONTRAST (11/23/19) CT HEAD/BRAIN W/O DYE (08/07/15) CT MAXILLOFACIAL W/O DYE (10/26/14) DRAIN/INJ JOINT/BURSA W/O US (10/05/19) ELECTROCARDIOGRAM TRACING (10/27/18) EMERGENCY DEPT VISIT (08/07/15) GLYCOSYLATED HEMOGLOBIN TEST (12/08/19) HYDRATE IV INFUSION ADD-ON (08/07/15) LIPID PANEL (09/15/18) MED NUTRITION INDIV SUBSEQ (10/13/14) MEDICAL NUTRITION INDIV IN (09/13/14) METABOLIC PANEL TOTAL CA (12/08/19) MICROBE SUSCEPTIBLE RENETTA (10/16/18) MICROSOMAL ANTIBODY EACH (08/05/19) MR-STAPH DNA AMP PROBE (10/27/18) MRI BRAIN STEM W/O DYE (02/07/16) MRI JNT OF LWR EXTRE W/O DYE (09/02/14) MRI JOINT UPR EXTREM W/DYE (09/02/14) MRI JOINT UPR EXTREM W/O DYE (07/20/18) MRI LUMBAR SPINE W/O DYE (11/10/18) MRI NECK SPINE W/O DYE (10/15/19) NEEDLE LOCALIZATION BY XRAY (09/02/14) NEUROMUSCULAR REEDUCATION (10/03/15) PROTHROMBIN TIME (12/08/19) PT EVALUATION (09/18/15) RBC SED RATE AUTOMATED (09/15/19) RHEUMATOID FACTOR TEST QUAL (09/15/19) ROUTINE VENIPUNCTURE (12/08/19) SCR MAMMO BI INCL CAD (07/02/19) SHOULDER ARTHROSCOPY/SURGERY (10/27/18) THER/PROPH/DIAG INJ IV PUSH (08/07/15) THROMBOPLASTIN TIME PARTIAL (12/08/19) TOTAL CORTISOL (09/02/18) TX/PRO/DX INJ NEW DRUG ADDON (08/07/15) ULTRASOUND BREAST COMPLETE (09/03/19) URINALYSIS AUTO W/O SCOPE (03/01/19) URINALYSIS AUTO W/SCOPE (10/27/18) URINE BACTERIA CULTURE (10/16/18) URINE CULTURE/COLONY COUNT (10/16/18) URINE TEST (10/27/18) US EXAM OF HEAD AND NECK (09/03/18) VITAMIN D 25 HYDROXY (08/05/19) X-RAY EXAM CHEST 2 VIEWS (12/08/19) X-RAY EXAM HIP UNI 2-3 VIEWS (08/05/19) X-RAY EXAM NECK SPINE 2-3 VW (12/31/18) X-RAY EXAM OF SHOULDER (05/21/18) X-RAY EXAM OF WRIST (05/21/18) (1) S/P total knee arthroplasty SNOMED Code(s): 8581584385688, 307110236, 5712151423222 Code(s): Z96.659 - PRESENCE OF UNSPECIFIED ARTIFICIAL KNEE JOINT Priority: High Current Visit: Yes Qualifiers: Laterality: right Qualified Code(s): Z96.651 - Presence of right artificial knee joint (2) Osteoarthritis SNOMED Code(s): 012956999 Code(s): M19.90 - UNSPECIFIED OSTEOARTHRITIS, UNSPECIFIED SITE Priority: High Current Visit: Yes Qualifiers: Osteoarthritis location: knee Osteoarthritis type: primary Laterality: right Qualified Code(s): M17.11 - Unilateral primary osteoarthritis, right knee (3) Chronic lower back pain SNOMED Code(s): 132860962 Code(s): M54.5 - LOW BACK PAIN; G89.29 - OTHER CHRONIC PAIN Priority: Low Current Visit: No Qualifiers: Back pain laterality: unspecified Sciatica presence: unspecified whether sciatica present Qualified Code(s): M54.5 - Low back pain; G89.29 - Other chronic pain (4) Hyperbilirubinemia SNOMED Code(s): 03520667 Code(s): E80.6 - OTHER DISORDERS OF BILIRUBIN METABOLISM Priority: Medium Current Visit: No (5) Sheffield disease SNOMED Code(s): 61012773 Code(s): E80.4 - GILBERT SYNDROME Priority: Low Current Visit: No (6) Cardiac murmur SNOMED Code(s): 92062171 Code(s): R01.1 - CARDIAC MURMUR, UNSPECIFIED Priority: Low Current Visit : No (7) Thyroid nodule SNOMED Code(s): 858626607 Code(s): E04.1 - NONTOXIC SINGLE THYROID NODULE Priority: Low Current Visit: No (8) Vitamin D deficiency SNOMED Code(s): 18172454 Code(s): E55.9 - VITAMIN D DEFICIENCY, UNSPECIFIED Priority: Low Current Visit: No (9) Type II diabetes mellitus SNOMED Code(s): 50604986 Code(s): E11.9 - TYPE 2 DIABETES MELLITUS WITHOUT COMPLICATIONS Priority: High Current Visit: Yes Qualifiers: Diabetes mellitus long goods drier insulin use: unspecified long goods drier insulin use status Diabetes mellitus complication status: with other specified complication Qualified Code(s): E11.69 - Type 2 diabetes mellitus with other specified complication (10) Obesity SNOMED Code(s): 460782884, 358435413 Code(s): E66.9 - OBESITY, UNSPECIFIED Priority: Medium Current Visit: No Qualifiers: Obesity type: unspecified obesity type Obesity classification: adult class 2 (BMI 35 - 39.9) Serious obesity comorbidity presence: without serious comorbidity (11) PCOS (polycystic ovarian syndrome) SNOMED Code(s): 806657812 Code(s): E28.2 - POLYCYSTIC OVARIAN SYNDROME Priority: Medium Current Visit: No (12) Bigeminal rhythm SNOMED Code(s): 75035624 Code(s): I49.9 - CARDIAC ARRHYTHMIA, UNSPECIFIED Priority: Medium Current Visit: No (13) TIA (transient ischemic attack) SNOMED Code(s): 785560856 Code(s): G45.9 - TRANSIENT CEREBRAL ISCHEMIC ATTACK, UNSPECIFIED Priority: Low Current Visit: No (14) Lower extremity edema SNOMED Code(s): 553441179 Code(s): R60.0 - LOCALIZED EDEMA Priority: Low Current Visit: No (15) Headache SNOMED Code(s): 80583448 Code(s): R51 - HEADACHE Priority: Low Current Visit: No Qualifiers: Headache type: unspecified Headache chronicity pattern: unspecified pattern Intractability: not intractable Qualified Code(s): R51 - Headache (16) Hypokalemia SNOMED Code(s): 90142042 Code(s): E87.6 - HYPOKALEMIA Priority: Medium Current Visit: No (17) History of ectopic SNOMED Code(s): 057707305, 007912545 Code(s): Z87.59 - PERSONAL HISTORY OF COMP OF PREG, CHLDBRTH AND THE PUERP Priority: Low Current Visit: No (18) Vertigo SNOMED Code(s): 500711850 Code(s): R42 - DIZZINESS AND GIDDINESS Priority: Low Current Visit: No (19) Goiter SNOMED Code(s): 4402484 Code(s): E04.9 - NONTOXIC GOITER, UNSPECIFIED Priority: Low Current Visit : No (20) Easy bruising Priority: Low Current Visit: No (21) Adrenal insufficiency SNOMED Code(s): 306039652 Code(s): E27.40 - UNSPECIFIED ADRENOCORTICAL INSUFFICIENCY Priority: Medium Current Visit: No Problem List Initiated/Reviewed/Updated: Yes My Orders Last 24 Hours: My Active Orders 12/23/19 14:39 Blood Glucose Check, Bedside [RC] QIDACANDBED 12/23/19 17:00 Insulin Lispro [HumaLOG] See Protocol SUBCUT QIDACANDBED Plan: I/P: Acute: S/P right total knee arthroplasty - post-operative day 1 -DVT prophylaxis and pain management per primary care team -PT/OT -IS/RT -Monitor oxygen saturation -Titrate oxygen as needed -Home medications reviewed -Vital signs stable -Monitor labs -Pre-operative Hgb was 13.8; Now 11.6 -Pre-operative GFR was >60; Now >60 -Pre-operative potassium was 3.4; Now 4.0 -Pre-operative A1C was 7.5% -Pre-operative 12-lead EKG shows sinus rhythm with borderline Q-wave in inferior leads. -Baseline bigeminy -Bigeminy, trigeminy, and PACs noted in surgery Osteoarthritis of right knee -Pain management per primary care team Chronic: BPPV Chronic low back pain Suspected hypercortisolemia (listed as cortisol deficiency in pre-op note but this is inaccurate, verified with PCP and endocrinology note) Hyperbilirubinemia Sheffield disease Cardiac murmur Thyroid nodule Vitamin D deficiency Type II DM, Obesity Bigeminy TIA Lower extremity edema Headache Hypokalemia PCOS Fatty liver disease Goiter Deviated septum Recurrent Bronchitis Ectopic Vertigo Adrenal insufficiency Easy bruising Prior bladder sling placement Plan: Telemetry CM for discharge planning GI prophylaxis Home medications as indicated Other orders as listed above Routine AM labs She is a full code. Her PCP is Manoj Ford PA-C. From a hospitalist standpoint Nelly is doing well. She has been up ambulating and working with PT/OT. She has urinated and is off of oxygen. She has been utilizing her IS. Her labs and vital signs remain stable. No concerns on telemetry. She has been eating. She is cleared for discharge pending primary team and PT/OT agreement. Thank you for allowing us to participate in the care of this patient!!
--- NOTE | 2019-12-24 07:42 | PCM48HPAN ---
Post Anesthesia Note - EVALUATION WITHIN 48HRS OF ANESTHETIC Vital Signs in Normal Range: Yes Patient Participated in Evaluation: Yes Respiratory Function Stable: Yes Airway Patent: Yes Cardiovascular Function Stable: Yes Hydration Status Stable: Yes Pain Control Satisfactory: Yes Nausea and Vomiting Control Satisfactory: Yes Mental Status Recovered: Yes Vital Signs: Last Vital Signs Temp 36.4 C 12/24/19 03:27 Pulse 90 12/24/19 03:27 Resp 18 12/24/19 03:27 BP 112/65 12/24/19 03:27 Pulse Ox 94 L 12/24/19 05:49 - COMMENTS/OBSERVATIONS Free Text/Narrative:: no anesthesia complications noted
[2019-12-24] MEDS: Magnesium Oxide 400 MG Tab PO SCH (08:45)
[2019-12-24] MEDS: Docusate Sodium 100 MG Cap PO SCH (08:45)
[2019-12-24] MEDS: Famotidine 20 MG Tab PO SCH (08:45)
[2019-12-24] MEDS: Potassium Chloride 10 MEQ Tab.ER PO SCH (08:46)
[2019-12-24] MEDS ORDERED: Cholecalciferol (Vitamin D3) 5,000 UNIT Tab PO SCH (09:00)
[2019-12-24] MEDS ORDERED: Rivaroxaban 10 MG Tab PO SCH (09:00)
--- NOTE | 2019-12-24 09:22 | PCM.SURGPN ---
- General Info Date of Service: 12/24/19 POD#: 1 Functional Status: Reports: Pain Controlled, Tolerating Diet, Ambulating, Urinating, Incentive Spirometry - Patient Data Vitals - Most Recent: Last Vital Signs Temp 98.1 F 12/24/19 07:35 Pulse 104 H 12/24/19 07:35 Resp 20 12/24/19 07:35 BP 130/53 L 12/24/19 07:35 Pulse Ox 91 L 12/24/19 07:35 Weight - Most Recent: 257 lb 11.2 oz I&O - Last 24 Hours: Intake & Output 12/23/19 12/24/19 12/24/19 22:59 06:59 14:59 Intake Total 490 900 Output Total 600 Balance 490 300 Lab Results Last 24 Hrs: Laboratory Results - last 24 hr 12/23/19 12/23/19 12/23/19 Range/Units 10:17 10:19 16:55 WBC (3.98-10.04) K/mm3 RBC (3.98-5.22) M/mm3 Hgb (11.2-15.7) gm/dl Hct (34.1-44.9) % MCV (79.4-94.8) fl MCH (25.6-32.2) pg MCHC (32.2-35.5) g/dl RDW Std Deviation (36.4-46.3) fL Plt Count (182-369) K/mm3 MPV (9.4-12.3) fl Sodium (136-145) mEq/L Potassium (3.5-5.1) mEq/L Chloride (98-107) mEq/L Carbon Dioxide (21-32) mEq/L Anion Gap (5-15) BUN (7-18) mg/dL Creatinine (0.55-1.02) mg/dL Est Cr Clr Drug Dosing mL/min Estimated GFR (MDRD) (>60) mL/min BUN/Creatinine Ratio (14-18) Glucose (74-106) mg/dL POC Glucose 169 H 156 H (70-105) mg/dL Calcium (8.5-10.1) mg/dL Magnesium (1.8-2.4) mg/dl Total Bilirubin (0.2-1.0) mg/dL AST (15-37) U/L ALT (14-59) U/L Alkaline Phosphatase (46-116) U/L Total Protein (6.4-8.2) g/dl Albumin (3.4-5.0) g/dl Globulin gm/dL Albumin/Globulin Ratio (1-2) Blood Type A NEGATIVE Gel Antibody Screen Negative 12/23/19 12/24/19 12/24/19 Range/Units 20:33 05:05 05:05 WBC 7.91 (3.98-10.04) K/mm3 RBC 4.00 (3.98-5.22) M/mm3 Hgb 11.6 D (11.2-15.7) gm/dl Hct 35.6 (34.1-44.9) % MCV 89.0 (79.4-94.8) fl MCH 29.0 (25.6-32.2) pg MCHC 32.6 (32.2-35.5) g/dl RDW Std Deviation 46.9 H (36.4-46.3) fL Plt Count 177 L (182-369) K/mm3 MPV 9.4 (9.4-12.3) fl Sodium 136 (136-145) mEq/L Potassium 4.0 (3.5-5.1) mEq/L Chloride 101 (98-107) mEq/L Carbon Dioxide 27 (21-32) mEq/L Anion Gap 12.0 (5-15) BUN 24 H (7-18) mg/dL Creatinine 0.8 (0.55-1.02) mg/dL Est Cr Clr Drug Dosing 78.18 mL/min Estimated GFR (MDRD) > 60 (>60) mL/min BUN/Creatinine Ratio 30.0 H (14-18) Glucose 179 H (74-106) mg/dL POC Glucose 156 H (70-105) mg/dL Calcium 8.4 L (8.5-10.1) mg/dL Magnesium (1.8-2.4) mg/dl Total Bilirubin 1.2 H (0.2-1.0) mg/dL AST 43 H (15-37) U/L ALT 40 (14-59) U/L Alkaline Phosphatase 60 (46-116) U/L Total Protein 5.9 L (6.4-8.2) g/dl Albumin 3.0 L (3.4-5.0) g/dl Globulin 2.9 gm/dL Albumin/Globulin Ratio 1.0 (1-2) Blood Type Gel Antibody Screen 12/24/19 12/24/19 Range/Units 05:05 06:21 WBC (3.98-10.04) K/mm3 RBC (3.98-5.22) M/mm3 Hgb (11.2-15.7) gm/dl Hct (34.1-44.9) % MCV (79.4-94.8) fl MCH (25.6-32.2) pg MCHC (32.2-35.5) g/dl RDW Std Deviation (36.4-46.3) fL Plt Count (182-369) K/mm3 MPV (9.4-12.3) fl Sodium (136-145) mEq/L Potassium (3.5-5.1) mEq/L Chloride (98-107) mEq/L Carbon Dioxide (21-32) mEq/L Anion Gap (5-15) BUN (7-18) mg/dL Creatinine (0.55-1.02) mg/dL Est Cr Clr Drug Dosing mL/min Estimated GFR (MDRD) (>60) mL/min BUN/Creatinine Ratio (14-18) Glucose (74-106) mg/dL POC Glucose 142 H (70-105) mg/dL Calcium (8.5-10.1) mg/dL Magnesium 1.9 (1.8-2.4) mg/dl Total Bilirubin (0.2-1.0) mg/dL AST (15-37) U/L ALT (14-59) U/L Alkaline Phosphatase (46-116) U/L Total Protein (6.4-8.2) g/dl Albumin (3.4-5.0) g/dl Globulin gm/dL Albumin/Globulin Ratio (1-2) Blood Type Gel Antibody Screen Med Orders - Current: Current Medications Bisacodyl (Dulcolax) 5 mg PO DAILY PRN PRN Reason: Constipation Cholecalciferol (Vitamin D3) 5,000 unit PO DAILY [facility] Last Admin: 12/24/19 08:46 Dose: 5,000 unit Cyclobenzaprine HCl (Flexeril) 10 mg PO TID PRN PRN Reason: Spasms Docusate Sodium (Colace) 100 mg PO BID [facility] Last Admin: 12/24/19 08:45 Dose: 100 mg Famotidine (Pepcid) 20 mg PO Q12H [facility] Last Admin: 12/24/19 08:45 Dose: 20 mg Cefazolin Sodium/Dextrose 2 gm (/ Premix) 50 mls @ 100 mls/hr IV Q8H [facility] Stop: 12/24/19 12:29 Last Admin: 12/24/19 03:13 Dose: 100 mls/hr Insulin Human Lispro (Humalog) 0 unit SUBCUT QIDACANDBED [facility]; Protocol Last Admin: 12/24/19 06:35 Dose: Not Given Ketorolac Tromethamine (Toradol) 15 mg IVPUSH Q6H PRN PRN Reason: Pain Last Admin: 12/23/19 16:05 Dose: 15 mg Magnesium Hydroxide (Milk Of Magnesia) 30 ml PO BID PRN PRN Reason: Constipation Magnesium Oxide (Magnesium Oxide) 400 mg PO BID [facility] Last Admin: 12/24/19 08:45 Dose: 400 mg Morphine Sulfate (Morphine) 2 mg IVPUSH Q2H PRN PRN Reason: Breakthrough Pain Naloxone HCl (Narcan) 0.1 mg IVPUSH Q5M PRN PRN Reason: Oversedation Ondansetron HCl (Zofran) 4 mg IVPUSH Q6H PRN PRN Reason: Nausea/Vomiting Oxycodone/Acetaminophen (Percocet 325-5 Mg) 1 - 2 tab PO Q4H PRN PRN Reason: Pain Last Admin: 12/24/19 08:46 Dose: 2 tab Potassium Chloride (Klor-Con 10) 10 meq PO BID [facility] Last Admin: 12/24/19 08:46 Dose: 10 meq Rivaroxaban (Xarelto) 10 mg PO DAILY [facility] Last Admin: 12/24/19 08:46 Dose: 10 mg Senna (Senna) 8.6 mg PO BID PRN PRN Reason: Constipation Tobramycin/Dexamethasone (Tobradex Ophth Susp) 0 ml EYEBOTH ASDIRECTED PRN PRN Reason: as directed Discontinued Medications Acetaminophen (Tylenol) 975 mg PO ONETIME [facility] Stop: 12/23/19 12:00 Bupivacaine HCl (Sensorcaine-Mpf 0.25%) Confirm Administered Dose 30 ml .ROUTE .STK-MED ONE Stop: 12/23/19 11:26 Last Admin: 12/23/19 13:33 Dose: 30 ml Cefazolin Sodium (Ancef) Confirm Administered Dose 2 gm .ROUTE .[facility] ONE Stop: 12/23/19 10:59 Last Admin: 12/23/19 13:29 Dose: 2 gm Cefazolin Sodium (Ancef) Confirm Administered Dose 2 gm .ROUTE .[facility] ONE Stop: 12/23/19 11:25 Morphine Sulfate 8 mg/Epinephrine HCl 0.3 mg/Cefuroxime Sodium 750 mg/Ketorolac Tromethamine 30 mg/Sodium Chloride 7.9 ml 0 mg .XX ONETIME ONE Stop: 12/23/19 10:01 Last Admin: 12/23/19 15:18 Dose: Not Given Fentanyl (Sublimaze) Confirm Administered Dose 100 mcg .ROUTE .[facility] ONE Stop: 12/23/19 09:49 Fentanyl (Sublimaze) 50 mcg IVPUSH Q5M PRN PRN Reason: Pain Hydromorphone HCl (Dilaudid) 0.5 mg IVPUSH Q10M PRN PRN Reason: Pain (severe 7-10) Lactated Ringer's (Ringers, Lactated) 1,000 mls @ 125 mls/hr IV ASDIRECTED [facility] Stop: 12/22/19 23:00 Lactated Ringer's (Ringers, Lactated) 1,000 mls @ 125 mls/hr IV ASDIRECTED [facility] Stop: 12/23/19 23:00 Last Admin: 12/23/19 10:25 Dose: 125 mls/hr Cefazolin Sodium/Dextrose 2 gm (/ Premix) 50 mls @ 100 mls/hr IV Q8H [facility] Stop: 12/24/19 11:29 Last Admin: 12/23/19 19:58 Dose: Not Given Lactated Ringer's (Ringers, Lactated) Confirm Administered Dose 1,000 mls @ as directed .ROUTE .[facility] ONE Stop: 12/23/19 11:50 Lactated Ringer's (Ringers, Lactated) Confirm Administered Dose 1,000 mls @ as directed .ROUTE .[facility] ONE Stop: 12/23/19 13:22 Lidocaine/Sodium Bicarbonate (Buffered Lidocaine 1% In Ns 8.4%) 0.25 ml IDERM ONETIME PRN PRN Reason: Prior to IV Start Stop: 12/22/19 23:00 Lidocaine/Sodium Bicarbonate (Buffered Lidocaine 1% In Ns 8.4%) 0.25 ml IDERM ONETIME PRN PRN Reason: Prior to IV Start Stop: 12/23/19 18:00 Last Admin: 12/23/19 10:25 Dose: 0.25 ml Midazolam HCl (Versed 1 Mg/Ml) Confirm Administered Dose 2 mg .ROUTE .STK-MED ONE Stop: 12/23/19 10:56 Midazolam HCl (Versed 1 Mg/Ml) Confirm Administered Dose 2 mg .ROUTE .STK-MED ONE Stop: 12/23/19 12:13 Ondansetron HCl (Zofran) 4 mg IVPUSH ONETIME PRN PRN Reason: Nausea/Vomiting Oxycodone HCl (Oxycontin) 10 mg PO ONETIME [facility] Stop: 12/23/19 12:00 Last Admin: 12/23/19 10:38 Dose: 10 mg Phenylephrine HCl (Phenylephrine In Ns 100 Mcg/Ml) Confirm Administered Dose 1 mg .ROUTE .STK-MED ONE Stop: 12/23/19 13:12 Pregabalin (Lyrica) 50 mg PO ONETIME [facility] Stop: 12/23/19 18:00 Last Admin: 12/23/19 10:37 Dose: 50 mg Propofol (Diprivan 20 Ml) Confirm Administered Dose 600 mg .ROUTE .STK-MED ONE Stop: 12/23/19 10:56 Propofol (Diprivan 20 Ml) Confirm Administered Dose 400 mg .ROUTE .STK-MED ONE Stop: 12/23/19 13:21 Scopolamine (Transderm-Scop) 1.5 mg TRDERM ONETIME [facility] Stop: 12/23/19 16:00 Last Admin: 12/23/19 10:39 Dose: 1.5 mg Sodium Chloride (Saline Flush) 10 ml FLUSH ASDIRECTED PRN PRN Reason: Keep Vein Open Stop: 12/22/19 23:00 Sodium Chloride (Saline Flush) 10 ml FLUSH ASDIRECTED PRN PRN Reason: Keep Vein Open Stop: 12/23/19 18:00 Tranexamic Acid (Cyklokapron) Confirm Administered Dose 1,000 mg .ROUTE .STK- MED ONE Stop: 12/23/19 11:25 Last Admin: 12/23/19 13:34 Dose: 1,000 mg Vancomycin HCl (Vancomycin) Confirm Administered Dose 1 gm .ROUTE .STK-MED ONE Stop: 12/23/19 11:25 Last Admin: 12/23/19 13:34 Dose: 1 gm - Exam Wound/Incisions: Dressing Dry and Intact General: Alert, Cooperative, No Acute Distress Lungs: Normal Respiratory Effort Extremities: Other (NVS intact for BLE. Prince's negative. Right thigh soft.) Sepsis Event Note - Evaluation Sepsis Screening Result: No Definite Risk - Focused Exam Vital Signs: Vital Signs Temp Temp Pulse Resp BP BP Pulse Ox 12/24/19 07:35 98.1 F 104 H 20 130/53 L 91 L 12/24/19 05:49 12/24/19 03:27 97.5 F 90 18 112/65 95 12/24/19 00:00 98.8 F 16 132/85 93 L Pulse Ox 12/24/19 07:35 12/24/19 05:49 94 L 12/24/19 03:27 12/24/19 00:00 Date Exam was Performed: 12/24/19 Time Exam was Performed: 09:18 - Problem List Review Problem List Initiated/Reviewed/Updated: Yes - My Orders Last 24 Hours: Active Orders 24 hr Category Date Time Status Blood Glucose Check, Bedside [RC] QIDACANDBED Care 12/23/19 14:39 Active Communication Order [RC] ASDIRECTED Care 12/23/19 14:19 Inactive Cooling Warming Measures [RC] ASDIRECTED Care 12/23/19 14:19 Inactive Oxygen Therapy [RC] ASDIRECTED Care 12/23/19 14:19 Inactive Pulse Oximetry [RC] ASDIRECTED Care 12/23/19 14:19 Inactive Vital Signs [RC] Q15M Care 12/23/19 14:19 Inactive [employer] Diet [DIET] Diet 12/23/19 Dinner Active Cholecalciferol (Vitamin D3) [Vitamin D3] Med 12/24/19 09:00 Active 5,000 unit PO DAILY Dexamethasone/Tobramycin [Tobradex Ophth Susp] Med 12/23/19 14:11 Active 0 ml EYEBOTH ASDIRECTED PRN Docusate Sodium [Colace] Med 12/23/19 21:00 Active 100 mg PO BID Famotidine [Pepcid] Med 12/23/19 21:00 Active 20 mg PO Q12H Insulin Lispro [HumaLOG] Med 12/23/19 17:00 Active See Protocol SUBCUT QIDACANDBED Ketorolac [Toradol] Med 12/23/19 16:00 Active 15 mg IVPUSH Q6H PRN Magnesium Oxide Med 12/23/19 21:00 Active 400 mg PO BID Potassium Chloride [Klor-Con 10] Med 12/23/19 21:00 Active 10 meq PO BID Rivaroxaban [Xarelto] Med 12/24/19 09:00 Active 10 mg PO DAILY ceFAZolin [Ancef] 2 gm Med 12/23/19 20:00 Active Premix Bag 1 bag IV Q8H Medication Orders Bisacodyl (Dulcolax) 5 mg PO DAILY PRN PRN Reason: Constipation Cholecalciferol (Vitamin D3) 5,000 unit PO DAILY [facility] Last Admin: 12/24/19 08:46 Dose: 5,000 unit Cyclobenzaprine HCl (Flexeril) 10 mg PO TID PRN PRN Reason: Spasms Docusate Sodium (Colace) 100 mg PO BID [facility] Last Admin: 12/24/19 08:45 Dose: 100 mg Admin: 12/23/19 20:24 Dose: 100 mg Famotidine (Pepcid) 20 mg PO Q12H [facility] Last Admin: 12/24/19 08:45 Dose: 20 mg Admin: 12/23/19 20:24 Dose: 20 mg Cefazolin Sodium/Dextrose 2 gm (/ Premix) 50 mls @ 100 mls/hr IV Q8H [facility] Stop: 12/24/19 12:29 Last Admin: 12/24/19 03:13 Dose: 100 mls/hr Infusion: 12/23/19 20:55 Dose: 100 mls/hr Admin: 12/23/19 20:25 Dose: 100 mls/hr Insulin Human Lispro (Humalog) 0 unit SUBCUT QIDACANDBED [facility]; Protocol Last Admin: 12/24/19 06:35 Dose: Not Given Admin: 12/23/19 22:10 Dose: 1 unit Admin: 12/23/19 17:09 Dose: 1 unit Ketorolac Tromethamine (Toradol) 15 mg IVPUSH Q6H PRN PRN Reason: Pain Last Admin: 12/23/19 16:05 Dose: 15 mg Magnesium Hydroxide (Milk Of Magnesia) 30 ml PO BID PRN PRN Reason: Constipation Magnesium Oxide (Magnesium Oxide) 400 mg PO BID [facility] Last Admin: 12/24/19 08:45 Dose: 400 mg Admin: 12/23/19 20:23 Dose: 400 mg Morphine Sulfate (Morphine) 2 mg IVPUSH Q2H PRN PRN Reason: Breakthrough Pain Naloxone HCl (Narcan) 0.1 mg IVPUSH Q5M PRN PRN Reason: Oversedation Ondansetron HCl (Zofran) 4 mg IVPUSH Q6H PRN PRN Reason: Nausea/Vomiting Oxycodone/Acetaminophen (Percocet 325-5 Mg) 1 - 2 tab PO Q4H PRN PRN Reason: Pain Last Admin: 12/24/19 08:46 Dose: 2 tab Admin: 12/24/19 03:23 Dose: 2 tab Admin: 12/23/19 22:32 Dose: 2 tab Admin: 12/23/19 16:54 Dose: 2 tab Potassium Chloride (Klor-Con 10) 10 meq PO BID [facility] Last Admin: 12/24/19 08:46 Dose: 10 meq Admin: 12/23/19 20:23 Dose: 10 meq Rivaroxaban (Xarelto) 10 mg PO DAILY [facility] Last Admin: 12/24/19 08:46 Dose: 10 mg Senna (Senna) 8.6 mg PO BID PRN PRN Reason: Constipation Tobramycin/Dexamethasone (Tobradex Ophth Susp) 0 ml EYEBOTH ASDIRECTED PRN PRN Reason: as directed - Assessment Assessment (Free Text/Narrative):: POD#1 - right IQRA - Plan Plan (Free Text/Narrative):: 1. Hgb 11.6. 2. Xarelto 10mg PO daily (family hx DVT), frequent mobility, TEDs. 3. Discharge to home today if cleared by Hospitalist service. 4. IQRA precautions. The pt was evaluated by Dr. Arriola today.
[2019-12-24] MEDS ORDERED: Benzocaine/Cetylpyridinium/Menthol Lozenge MUCMEM ONE (11:45)
[2019-12-24] MEDS: Ketorolac 15 MG/ML SDV IVPUSH PRN (12:16)
[2019-12-24 13:13] VITALS: BP 118/62; PULSE 92
--- NOTE | 2019-12-27 12:21 | PCM.DCSUM1 ---
Discharge Summary - Hospital Course Brief History: Nelly is a 54 yo female who underwent right IQRA with Dr. Arriola on 12-23-2019. The procedure was completed under spinal anesthesia with MAC. The pt tolerated the procedure well and was admitted to the Medical-Surgical Unit. The pt received Ancef bernardo-operatively. She participated in P.T. and O.T. and progressed well. She was allowed to WBAT and used a FWW for mobility. IQRA precautions were followed. The pt's surgical wound was dressed with a Mepilex dressing and remained clean and dry. On POD#1, the pt was started on Xarelto 10mg PO daily for VTE prophylaxis. The pt used TEDs and SCDs also. On POD#1, the pt's hemoglobin was 11.6. Medical management was provided by the Hospitalist service and the pt's hospital course was uneventful. On POD#1, the pt was deemed appropriate for discharge to home. - Discharge Data Discharge Date: 12/24/19 Discharge Disposition: Home, Self-Care 01 Condition: Good - Referral to Home Health Primary Care Physician: Manoj Ford PA-C - Patient Summary/Data Consults: Consultations 12/23/19 07:23 Consult to Physician [CONS] Routine OT Evaluation and Treatment [CONS] Routine PT Evaluation and Treatment [CONS] Routine - Patient Instructions Diet: Usual Diet as Tolerated Activity: Apply Ice, As Tolerated, Elevate Extremity, Full Weight Bearing Activity, Other: Follow the total hip precautions. Driving: Do Not Drive Showering/Bathing: May Shower Wound/Incision Care: Keep Operative Site/Wound Site Clean and Dry, Do NOT Change Dressing Notify Provider of: Fever, Increased Pain, Swelling and Redness, Drainage, Nausea and/or Vomiting Other/Special Instructions: Please get up and moving around EVERY HOUR while awake. This helps to prevent blood clots. Please use your walker and have help with mobility as needed. Take a short walk in your home every hour while awake. Please take the Xarelto blood thinner medication daily as directed. At home, please complete the exercises that you learned during the Hospital stay. Schedule for physical therapy. Use the pain medication as needed. The medication may cause drowsiness and constipation. Contact your primary care provider for instructions if you are constipated. You may use a stool softener like docusate sodium or Colace 100mg twice daily and/or a laxative like Miralax daily for constipation. Increase your water and fiber intake while you are using the pain medication. Discontinue use of the pain medication as soon as able. Please do not use other medications that may cause drowsiness (other pain medications, anxiety pills, cold medications, sleeping pills, etc) while using the prescription pain medication. Do not use alcohol while using the pain medication. You may use acetaminophen or Tylenol for pain management, however, please ensure you are not using over 4000 mg or 4 grams of acetaminophen per day from all sources. Your pain medication has 325mg of acetaminophen per tablet. At this time, please do not use ibuprofen (Motrin, Advil) or naproxen (Aleve) for pain management as you are using the Xarelto. When the Xarelto course is completed in 5 weeks, you could use ibuprofen or naproxen for pain management (if this is allowed by your primary care provider) . Wear the LUZMA hose during the day and you may remove these at night. Elevate the limb to decrease swelling. Place ice to the area often. Place a towel between your skin and the blue pad. Use the incentive spirometer often. Take deep breaths throughout the day. Please keep the dressing in place until follow -up. Notify the Clinic if the dressing becomes saturated. Increase your protein intake while you are healing. Please closely monitor your blood sugars and notify your primary care provider with abnormal values. Elevated blood sugars increases the risk of infection. Call the Clinic with questions or concerns - [phone]. - Discharge Plan *PRESCRIPTION DRUG MONITORING PROGRAM REVIEWED*: No *COPY OF PRESCRIPTION DRUG MONITORING REPORT IN PATIENT RACHEL: No Prescriptions/Med Rec: Acetaminophen/oxyCODONE [Percocet 325-5 MG] 1 - 2 tab PO Q4H PRN #60 tablet PRN Reason: Pain Cyclobenzaprine [Flexeril] 10 mg PO BID PRN #30 tablet PRN Reason: Spasms Rivaroxaban [Xarelto] 10 mg PO DAILY #35 tablet Home Medications: Home Meds Potassium Chloride [Klor-Con 10] 10 meq PO BID 08/12/18 [History] metFORMIN HCl [Metformin HCl ER] 500 mg PO TID 08/12/18 [History] Adrenal Cap 1 cap PO DAILY 10/23/18 [History] Cholecalciferol (Vitamin D3) [Vitamin D3] 5,000 unit PO DAILY 10/23/18 [History] Estradiol [Estrogel] 1 dose TOP DAILY 12/22/19 [History] Furosemide 40 mg PO BID 12/22/19 [History] Magnesium Oxide [Magnesium] 500 mg PO BID 12/22/19 [History] Tobramycin/Dexamethasone [Tobradex Eye Drops] 1 drop EYEBOTH ASDIRECTED PRN [History] Acetaminophen/oxyCODONE [Percocet 325-5 MG] 1 - 2 tab PO Q4H PRN #60 tablet [Rx] Cyclobenzaprine [Flexeril] 10 mg PO BID PRN #30 tablet 12/24/19 [Rx] Docusate Sodium [Colace] 100 mg PO BID cap 12/24/19 [Rx] Famotidine [Pepcid] 20 mg PO Q12H tablet 12/24/19 [Rx] Magnesium Hydroxide [Milk of Magnesia] 30 ml PO BID PRN cup 12/24/19 [Rx] Rivaroxaban [Xarelto] 10 mg PO DAILY #35 tablet 12/24/19 [Rx] Sennosides [Senna] 8.6 mg PO BID PRN tablet 12/24/19 [Rx] bisacodyL [Dulcolax] 5 mg PO DAILY PRN tablet 12/24/19 [Rx] Patient Handouts: Rivaroxaban oral tablets, Total Hip Replacement, [id number] Referrals: Manoj Ford PA-C [Primary Care Provider] - (Follow-up with primary care provider as needed.) Nikole Wallis PA-C [Physician Chemical Sprayer] - 12/28/19 11:45 am (Please see Ingrid Wallis for follow-up appointment Dec.28 @ 11:45 am.) - Discharge Summary/Plan Comment DC Time >30 min.: No - Patient Data Vitals - Most Recent: Last Vital Signs Temp 99.0 F 12/24/19 11:28 Pulse 92 12/24/19 11:28 Resp 16 12/24/19 11:28 BP 118/62 12/24/19 11:28 Pulse Ox 93 L 12/24/19 11:28 Weight - Most Recent: 257 lb 11.2 oz Med Orders - Current: Current Medications Discontinued Medications Acetaminophen (Tylenol) 975 mg PO ONETIME [facility] Stop: 12/23/19 12:00 Benzocaine/Menthol (Cepacol Sore Throat) 1 lozenge MUCMEM ONETIME ONE Stop: 12/24/19 11:46 Last Admin: 12/24/19 12:08 Dose: 1 lozenge Bisacodyl (Dulcolax) 5 mg PO DAILY PRN PRN Reason: Constipation Bupivacaine HCl (Sensorcaine-Mpf 0.25%) Confirm Administered Dose 30 ml .ROUTE .STK-MED ONE Stop: 12/23/19 11:26 Last Admin: 12/23/19 13:33 Dose: 30 ml Cefazolin Sodium (Ancef) Confirm Administered Dose 2 gm .ROUTE .STK-MED ONE Stop: 12/23/19 10:59 Last Admin: 12/23/19 13:29 Dose: 2 gm Cefazolin Sodium (Ancef) Confirm Administered Dose 2 gm .ROUTE .STK-MED ONE Stop: 12/23/19 11:25 Cholecalciferol (Vitamin D3) 5,000 unit PO DAILY [facility] Last Admin: 12/24/19 08:46 Dose: 5,000 unit Morphine Sulfate 8 mg/Epinephrine HCl 0.3 mg/Cefuroxime Sodium 750 mg/Ketorolac Tromethamine 30 mg/Sodium Chloride 7.9 ml 0 mg .XX ONETIME ONE Stop: 12/23/19 10:01 Last Admin: 12/23/19 15:18 Dose: Not Given Cyclobenzaprine HCl (Flexeril) 10 mg PO TID PRN PRN Reason: Spasms Last Admin: 12/24/19 12:15 Dose: 10 mg Docusate Sodium (Colace) 100 mg PO BID [facility] Last Admin: 12/24/19 08:45 Dose: 100 mg Famotidine (Pepcid) 20 mg PO Q12H [facility] Last Admin: 12/24/19 08:45 Dose: 20 mg Fentanyl (Sublimaze) Confirm Administered Dose 100 mcg .ROUTE .STK-MED ONE Stop: 12/23/19 09:49 Fentanyl (Sublimaze) 50 mcg IVPUSH Q5M PRN PRN Reason: Pain Hydromorphone HCl (Dilaudid) 0.5 mg IVPUSH Q10M PRN PRN Reason: Pain (severe 7-10) Lactated Ringer's (Ringers, Lactated) 1,000 mls @ 125 mls/hr IV ASDIRECTED [facility] Stop: 12/22/19 23:00 Lactated Ringer's (Ringers, Lactated) 1,000 mls @ 125 mls/hr IV ASDIRECTED [facility] Stop: 12/23/19 23:00 Last Admin: 12/23/19 10:25 Dose: 125 mls/hr Cefazolin Sodium/Dextrose 2 gm (/ Premix) 50 mls @ 100 mls/hr IV Q8H [facility] Stop: 12/24/19 11:29 Last Admin: 12/23/19 19:58 Dose: Not Given Lactated Ringer's (Ringers, Lactated) Confirm Administered Dose 1,000 mls @ as directed .ROUTE .STK-MED ONE Stop: 12/23/19 11:50 Lactated Ringer's (Ringers, Lactated) Confirm Administered Dose 1,000 mls @ as directed .ROUTE .STK-MED [facility] Stop: 12/23/19 13:22 Cefazolin Sodium/Dextrose 2 gm (/ Premix) 50 mls @ 100 mls/hr IV Q8H [facility] Stop: 12/24/19 12:29 Last Admin: 12/24/19 11:21 Dose: 100 mls/hr Insulin Human Lispro (Humalog) 0 unit SUBCUT QIDACANDBED [facility]; Protocol Last Admin: 12/24/19 12:09 Dose: 1 unit Ketorolac Tromethamine (Toradol) 15 mg IVPUSH Q6H PRN PRN Reason: Pain Last Admin: 12/24/19 12:16 Dose: 15 mg Lidocaine/Sodium Bicarbonate (Buffered Lidocaine 1% In Ns 8.4%) 0.25 ml IDERM ONETIME PRN PRN Reason: Prior to IV Start Stop: 12/22/19 23:00 Lidocaine/Sodium Bicarbonate (Buffered Lidocaine 1% In Ns 8.4%) 0.25 ml IDERM ONETIME PRN PRN Reason: Prior to IV Start Stop: 12/23/19 18:00 Last Admin: 12/23/19 10:25 Dose: 0.25 ml Magnesium Hydroxide (Milk Of Magnesia) 30 ml PO BID PRN PRN Reason: Constipation Magnesium Oxide (Magnesium Oxide) 400 mg PO BID [facility] Last Admin: 12/24/19 08:45 Dose: 400 mg Midazolam HCl (Versed 1 Mg/Ml) Confirm Administered Dose 2 mg .ROUTE .STK-MED ONE Stop: 12/23/19 10:56 Midazolam HCl (Versed 1 Mg/Ml) Confirm Administered Dose 2 mg .ROUTE .[facility]-MED ONE Stop: 12/23/19 12:13 Morphine Sulfate (Morphine) 2 mg IVPUSH Q2H PRN PRN Reason: Breakthrough Pain Naloxone HCl (Narcan) 0.1 mg IVPUSH Q5M PRN PRN Reason: Oversedation Ondansetron HCl (Zofran) 4 mg IVPUSH Q6H PRN PRN Reason: Nausea/Vomiting Ondansetron HCl (Zofran) 4 mg IVPUSH ONETIME PRN PRN Reason: Nausea/Vomiting Oxycodone HCl (Oxycontin) 10 mg PO ONETIME [facility] Stop: 12/23/19 12:00 Last Admin: 12/23/19 10:38 Dose: 10 mg Oxycodone/Acetaminophen (Percocet 325-5 Mg) 1 - 2 tab PO Q4H PRN PRN Reason: Pain Last Admin: 12/24/19 08:46 Dose: 2 tab Phenylephrine HCl (Phenylephrine In Ns 100 Mcg/Ml) Confirm Administered Dose 1 mg .ROUTE .[facility]-MED ONE Stop: 12/23/19 13:12 Potassium Chloride (Klor-Con 10) 10 meq PO BID [facility] Last Admin: 12/24/19 08:46 Dose: 10 meq Pregabalin (Lyrica) 50 mg PO ONETIME [facility] Stop: 12/23/19 18:00 Last Admin: 12/23/19 10:37 Dose: 50 mg Propofol (Diprivan 20 Ml) Confirm Administered Dose 600 mg .ROUTE .STK-MED ONE Stop: 12/23/19 10:56 Propofol (Diprivan 20 Ml) Confirm Administered Dose 400 mg .ROUTE .STK-MED ONE Stop: 12/23/19 13:21 Rivaroxaban (Xarelto) 10 mg PO DAILY [facility] Last Admin: 12/24/19 08:46 Dose: 10 mg Scopolamine (Transderm-Scop) 1.5 mg TRDERM ONETIME [facility] Stop: 12/23/19 16:00 Last Admin: 12/23/19 10:39 Dose: 1.5 mg Senna (Senna) 8.6 mg PO BID PRN PRN Reason: Constipation Sodium Chloride (Saline Flush) 10 ml FLUSH ASDIRECTED PRN PRN Reason: Keep Vein Open Stop: 12/22/19 23:00 Sodium Chloride (Saline Flush) 10 ml FLUSH ASDIRECTED PRN PRN Reason: Keep Vein Open Stop: 12/23/19 18:00 Tobramycin/Dexamethasone (Tobradex Ophth Susp) 0 ml EYEBOTH ASDIRECTED PRN PRN Reason: as directed Tranexamic Acid (Cyklokapron) Confirm Administered Dose 1,000 mg .ROUTE .STK- MED ONE Stop: 12/23/19 11:25 Last Admin: 12/23/19 13:34 Dose: 1,000 mg Vancomycin HCl (Vancomycin) Confirm Administered Dose 1 gm .ROUTE .STK-MED ONE Stop: 12/23/19 11:25 Last Admin: 12/23/19 13:34 Dose: 1 gm
--- NOTE | 2019-12-27 17:39 | PCM.OPNOTE ---
- General Post-Op/Procedure Note Date of Surgery/Procedure: 12/23/19 Operative Procedure(s): right total hip arthroplasty Pre Op Diagnosis: right hip osteoarthrosis Post-Op Diagnosis: Same Anesthesia Technique: Local, MAC, Spinal Primary Surgeon: Cy Arriola Anesthesia Provider: Justice Hercules Lobbyist: Nikole Wallis Lobbyist: Radha Powers EBLeida in mLs: 500 Complications: None Condition: Good Free Text/Narrative:: 5 stem 52 cup 36+0
--- NOTE | 2019-12-27 18:15 | OR ---
DATE OF OPERATION: 12/23/2019 SURGEON: Cy Arriola MD OPERATION PERFORMED: Right total hip arthroplasty. PREOPERATIVE DIAGNOSIS: Right hip osteoarthrosis. POSTOPERATIVE DIAGNOSIS: Right hip osteoarthrosis. ANESTHESIA: Local MAC with spinal. ANESTHESIA PROVIDER: . ASSISTANTS: Nikole Wallis PA-C, and Radha Powers LPN. ESTIMATED BLOOD LOSS: 500 mL. COMPLICATIONS: None. CONDITION: Stable. IMPLANTS: 1. [place] size 5 Accolade II stem. 2. [place] size 52 mm solid Tritanium II acetabular cup. 3. [place] size 36 +0 Biolox femoral head. DESCRIPTION OF PROCEDURE: The patient was identified in the preoperative holding area. Proper site was marked and identified by the surgeon. The patient was taken back to the operating theater, where after adequate anesthesia, the patient was placed in a left lateral decubitus position. Axillary roll was placed. All bony prominences were well padded. Pegs were then placed and well padded. The patient's gluteal fold was parallel to the floor. Right hip was then sterilely prepped and draped in the usual sterile fashion. OR time-out was performed. The patient received 2 g IV Ancef. Standard posterior incision was made. This was taken down to the IT band and gluteal fascia, which was incised along the incisional length. Charnley retractor was then placed. Short external rotators were identified and takedown of short external rotators were done from the level of the piriformis down to the lesser trochanter. The hip was then dislocated. Neck cut was then completed and found to be adequate. Attention was turned to the acetabulum. Anterior and posterior acetabular retractors were then placed and found to be in adequate position. Circumferential removal of the labrum as well as the pulvinar was done at this time. Starting with a 48 reamer, I was able to ream up to a 52 and it was found to have adequate purchase with a good bony bleeding bed. At this time, a 52 mm solid Tritanium II acetabular cup was impacted in place to roughly 45 to 50 degrees of abduction and 20 to 30 degrees of anteversion. The 36 mm liner was then impacted into place. Attention was turned to the femur. Box chisel was used out laterally. Starter awl was placed down the canal. Starting with the 0 broach, I was able to broach up to a size 5 which was found to be rotationally and vertically stable. I trialed a 36 +0, was found to have adequate rastafarian of leg lengths and stable throughout range of motion. Bone hook was then utilized to dislocate the hip. Trial implants were then removed. Size 5 stem was then impacted into place, 36 +0 head was impacted onto the stem, and the hip was then relocated. A #5 Ethibond suture was used for closure of the capsule as well as short external rotators. 3 L pulse lavage irrigation with Ancef was then irrigated through the hip. Periarticular injection was completed. Topical tranexamic acid and vancomycin powder were applied. #2 barbed suture was used for closure of the ID band and gluteal fascia, 2-0 Vicryl was used subcutaneously, and Prineo was used for the skin. The patient tolerated the procedure well and was sent to PACU in stable condition. MMODAL /[id number]
== END 2019-12-24 13:45 | disposition home or self-care (01) | DRG 301 ==
LOC: JD.MS 12-23 09:32
PROVIDERS: ADMIT Orthopaedic Surgery; ATTEND Orthopaedic Surgery
PROC: 0SR90JZ Replacement of Right Hip Joint with Synthetic Substitute, Open Approach (ICD-10-PCS; principal; 2019-12-23)
DX: M16.11 Unilateral primary osteoarthritis, right hip (principal); H91.93 Unspecified hearing loss, bilateral; G89.29 Other chronic pain; M54.5 Low back pain; E80.4 Gilbert syndrome; J32.9 Chronic sinusitis, unspecified; E04.9 Nontoxic goiter, unspecified; M75.101 Unspecified rotator cuff tear or rupture of right shoulder, not specified as traumatic; M79.10 Myalgia, unspecified site; H81.10 Benign paroxysmal vertigo, unspecified ear; E66.01 Morbid (severe) obesity due to excess calories; E55.9 Vitamin D deficiency, unspecified; E80.6 Other disorders of bilirubin metabolism; E87.6 Hypokalemia; K76.0 Fatty (change of) liver, not elsewhere classified; E27.40 Unspecified adrenocortical insufficiency; H54.7 Unspecified visual loss; E28.2 Polycystic ovarian syndrome; I49.9 Cardiac arrhythmia, unspecified; Z68.41 Body mass index [BMI] 40.0-44.9, adult; Z79.84 Long term (current) use of oral hypoglycemic drugs; Z79.899 Other long term (current) drug therapy; Z91.09 Other allergy status, other than to drugs and biological substances; Z88.8 Allergy status to other drugs, medicaments and biological substances; Z86.73 Personal history of transient ischemic attack (TIA), and cerebral infarction without residual deficits; Z90.49 Acquired absence of other specified parts of digestive tract; Z90.89 Acquired absence of other organs; Z98.890 Other specified postprocedural states; Z91.013 Allergy to seafood; Z79.1 Long term (current) use of non-steroidal anti-inflammatories (NSAID)
CPT/HCPCS: 01214; 36415; 73501-26-RT; 73501-RT; 80053; 82962; 83735; 85027; 86850; 86900; 86901; 87641; 94760; 97116-GP; 97161-GP; 97165-GO; 97535-GO; 99222; 99232; A9270-GY; C1776; J0171; J0690; J0697; J1815-GY; J1885; J2250; J2270; J2370; J2704; J3010; J3370; J3490; J7120

== ENCOUNTER 2021-12-17 08:51 | Day surgery (SDC) | payer OTHER ==
[~2021-12-17 08:51] MED LIST changes: +Acetaminophen 325 MG Tab PO SCH; +Cyclobenzaprine 10 MG Tab PO PRN; +Morphine 8 MG, EPINEPHrine 0.3 MG, Cefuroxime 750 MG, Ketorolac 30 MG, Sodium Chloride ... PRN; +Pregabalin 25 MG Cap PO SCH; -Sodium Chloride 0.9% 10 ML Syringe FLUSH PRN; +Sodium Chloride 0.9% 10 ML Syringe FLUSH SCH; +oxyCODONE 5 MG Tab PO PRN; +oxyCODONE ER 10 MG TAB.ER PO SCH
[2021-12-17] MEDS ORDERED: Vancomycin 1 GM SDV ONE (10:05)
[2021-12-17] MEDS ORDERED: fentaNYL 100 MCG/2 ML SDV ONE (10:27)
[2021-12-17] MEDS ORDERED: Midazolam 1 MG/ML 2 ML SDV ONE (10:27)
[2021-12-17] MEDS ORDERED: Propofol 200 MG/20 ML SDV ONE (10:30)
[2021-12-17] MEDS ORDERED: Bupivacaine 0.75% 30 ML SDV ONE (10:33)
[2021-12-17] MEDS ORDERED: ceFAZolin 1 GM Vial ONE (11:07)
[2021-12-17] MEDS ORDERED: HYDROmorphone 0.5 MG/0.5 ML Syringe IVPUSH PRN (11:47)
[2021-12-17] MEDS ORDERED: fentaNYL 100 MCG/2 ML SDV IVPUSH PRN (11:47)
[2021-12-17] MEDS ORDERED: Lactated Ringers 1,000 ML ONE (12:21)
[2021-12-17 16:48] VITALS: BP 123/78; PULSE 66
== END 2021-12-17 16:36 | disposition home or self-care (01) ==
LOC: JD.SDS 08:51
PROVIDERS: ATTEND Orthopaedic Surgery
DX: M16.12 Unilateral primary osteoarthritis, left hip (principal); E78.5 Hyperlipidemia, unspecified; K21.9 Gastro-esophageal reflux disease without esophagitis; E87.0 Hyperosmolality and hypernatremia; E11.42 Type 2 diabetes mellitus with diabetic polyneuropathy; I10 Essential (primary) hypertension; E66.9 Obesity, unspecified; Z88.8 Allergy status to other drugs, medicaments and biological substances; Z91.013 Allergy to seafood; Z79.82 Long term (current) use of aspirin; Z79.899 Other long term (current) drug therapy; Z90.49 Acquired absence of other specified parts of digestive tract; Z98.890 Other specified postprocedural states; Z68.38 Body mass index [BMI] 38.0-38.9, adult
CPT/HCPCS: 27130; 36415; 72170; 82947; 86850; 86900; 86901; 97116; 97161; A9270; C1713; C1776; J0171; J0690; J0697; J1885; J2250; J2270; J2370; J2704; J3010; J3370; J3490; J7120; 01214

== ENCOUNTER 2024-05-05 08:06 | Day surgery (SDC) | payer OTHER ==
[~2024-05-05 08:06] MED LIST changes: -Cyclobenzaprine 10 MG Tab PO PRN; +EPINEPHrine 1 MG/ML SDV ONE; -Lidocaine 1%/Sod Bicarbonate in NS 8.4% 1 ML Syringe IDERM PRN; -Morphine 8 MG, EPINEPHrine 0.3 MG, Cefuroxime 750 MG, Ketorolac 30 MG, Sodium Chloride ... PRN; +Ropivacaine 0.5% 5 MG/ML 30 ML SDV ONE; +Sodium Chloride 0.9% 10 ML Syringe FLUSH PRN; +dexmedeTOMIDine HCl 200 MCG/2 ML SDV ONE; -oxyCODONE 5 MG Tab PO PRN
[2024-05-05] MEDS ORDERED: fentaNYL 100 MCG/2 ML SDV ONE (09:52)
[2024-05-05] MEDS ORDERED: Propofol 200 MG/20 ML SDV ONE ×2 (09:52→12:13)
[2024-05-05] MEDS ORDERED: Midazolam 1 MG/ML 2 ML SDV ONE ×2 (09:52→12:30)
[2024-05-05] MEDS ORDERED: Ketorolac 30 MG/ML SDV ONE (09:54)
[2024-05-05] MEDS ORDERED: Dexamethasone 4 MG/ML 5 ML MDV ONE (09:54)
[2024-05-05] MEDS ORDERED: Ondansetron 4 MG/2 ML SDV ONE (09:54)
[2024-05-05] MEDS ORDERED: ceFAZolin 2 GM Vial ONE (09:54)
[2024-05-05] MEDS ORDERED: Lactated Ringers 1,000 ML IV ONE (12:00)
[2024-05-05] MEDS: Morphine 8 MG, EPINEPHrine 0.3 MG, Cefuroxime 750 MG, Ketorolac 30 MG, Sodium Chloride ... PRN (12:30)
[2024-05-05] MEDS: Vancomycin 1 GM SDV ONE (12:37)
[2024-05-05] MEDS: Tranexamic Acid 1,000 MG/10 ML Vial ONE (12:37)
[2024-05-05] MEDS ORDERED: HYDROmorphone 0.5 MG/0.5 ML Syringe IVPUSH PRN (13:15)
[2024-05-05] MEDS ORDERED: fentaNYL 100 MCG/2 ML SDV IVPUSH PRN (13:15)
[2024-05-05] MEDS ORDERED: Ondansetron 4 MG/2 ML SDV IVPUSH PRN (13:15)
[2024-05-05] MEDS ORDERED: oxyCODONE 5 MG Tab PO PRN (13:30)
[2024-05-05] MEDS: oxyCODONE 5 MG Tab PO PRN (14:35)
[2024-05-05 15:29] VITALS: BP 139/72; PULSE 85
== END 2024-05-05 16:40 | disposition home or self-care (01) ==
LOC: JD.SDS 08:06
PROVIDERS: ATTEND Orthopaedic Surgery
DX: M17.11 Unilateral primary osteoarthritis, right knee (principal); E11.9 Type 2 diabetes mellitus without complications; E66.01 Morbid (severe) obesity due to excess calories; K21.9 Gastro-esophageal reflux disease without esophagitis; E78.5 Hyperlipidemia, unspecified; Z79.84 Long term (current) use of oral hypoglycemic drugs; Z79.899 Other long term (current) drug therapy
CPT/HCPCS: 0055T; 27447; 64447; 73560; 97110; 97161; A9270; C1713; C1776; J0171; J0690; J0697; J1100; J1885; J2250; J2270; J2405; J2704; J2795; J3010; J3370; J7120; 01402; J3490

== ENCOUNTER 2025-05-05 06:00 | Day surgery (SDC) | payer OTHER ==
[~2025-05-05 06:00] MED LIST changes: -Acetaminophen 325 MG Tab PO SCH; -EPINEPHrine 1 MG/ML SDV ONE; -Lactated Ringers 1,000 ML IV SCH; -Pregabalin 25 MG Cap PO SCH; -Ropivacaine 0.5% 5 MG/ML 30 ML SDV ONE; -dexmedeTOMIDine HCl 200 MCG/2 ML SDV ONE; -oxyCODONE ER 10 MG TAB.ER PO SCH
[2025-05-05] MEDS ORDERED: Lidocaine 1% 4 ML ONE (06:01)
[2025-05-05] MEDS ORDERED: Rocuronium 50 MG/5 ML Vial ONE (06:01)
[2025-05-05] MEDS ORDERED: fentaNYL 100 MCG/2 ML SDV ONE (06:01)
[2025-05-05] MEDS ORDERED: dexmedeTOMIDine HCl 200 MCG/2 ML SDV ONE (06:01)
[2025-05-05] MEDS ORDERED: Propofol 200 MG/20 ML SDV ONE (06:01)
[2025-05-05] MEDS ORDERED: Ondansetron 4 MG/2 ML SDV ONE (06:01)
[2025-05-05] MEDS ORDERED: Dexamethasone 4 MG/ML 5 ML MDV ONE (06:01)
[2025-05-05] MEDS ORDERED: Lactated Ringers 1,000 ML ONE (06:01)
[2025-05-05] MEDS ORDERED: Ropivacaine 0.5% 5 MG/ML 30 ML SDV ONE (06:02)
[2025-05-05] MEDS ORDERED: Midazolam 1 MG/ML 2 ML SDV ONE (06:02)
[2025-05-05] MEDS ORDERED: ceFAZolin 2 GM Vial ONE (06:02)
[2025-05-05] MEDS: Lactated Ringers 1,000 ML IV SCH (06:25)
[2025-05-05] MEDS ORDERED: fentaNYL 100 MCG/2 ML SDV IVPUSH PRN (06:34)
[2025-05-05] MEDS ORDERED: HYDROmorphone 0.5 MG/0.5 ML Syringe IVPUSH PRN (06:34)
[2025-05-05] MEDS ORDERED: Ondansetron 4 MG/2 ML SDV IVPUSH PRN (06:34)
[2025-05-05] MEDS: Acetaminophen 325 MG Tab PO SCH (06:35)
[2025-05-05] MEDS: Pregabalin 25 MG Cap PO SCH (06:35)
[2025-05-05] MEDS: oxyCODONE ER 10 MG TAB.ER PO SCH (06:36)
[2025-05-05 06:43] LABS: BASOPHILS PERCENT AUTO 0.7 % (0.0-1.0); EOSINOPHILS ABSOLUTE AUTO 0.1 K/mm3 (0.0-0.4); EOSINOPHILS PERCENT AUTO 2.1 % (0.0-6.0); HEMOGLOBIN 14.4 gm/dl (12.0-16.0); IMMATURE GRAN ABSOLUTE AUTO 0.01 K/mm3 (0.00-0.05); IMMATURE GRAN PERCENT AUTO 0.2 % (0.0-0.4); LYMPHOCYTES PERCENT AUTO 23.9 % (24.0-44.0); MEAN CORPUSCULAR HEMOGLOBIN 29.3 pg (28.0-32.0); MEAN CORPUSCULAR HGB CONC 34.3 g/dl (32.0-36.0); MEAN CORPUSCULAR VOLUME 85.4 fl (83.0-99.0); MEAN PLATELET VOLUME 9.6 fl (9.4-12.3); MONOCYTES ABSOLUTE AUTO 0.4 K/mm3 (0.0-0.8); MONOCYTES PERCENT AUTO 8.6 % (0.0-8.0); NEUTROPHILS ABSOLUTE AUTO 2.8 K/mm3 (1.8-7.7); NEUTROPHILS PERCENT AUTO 64.5 % (41.0-71.0); PLATELET COUNT,PLT 170 K/mm3 (150-400); RED BLOOD CELL COUNT 4.92 M/mm3 (4.10-5.30); WHITE BLOOD CELL COUNT,WBC 4.31 K/mm3 (3.9-11.3)
[2025-05-05] MEDS ORDERED: diphenhydrAMINE 50 MG/ML SDV ONE (06:45)
[2025-05-05 06:49] LABS: INR 1.02; PROTHROMBIN TIME 10.8 SECONDS (9.7-12.0)
[2025-05-05 06:51] LABS: PTT,PARTIAL THROMBOPLSTIN TIME 25.6 SECONDS (21.7-31.4)
[2025-05-05] MEDS: Scopalamine 1mg/3day Transdermal Patch TRDERM ONE (07:06)
[2025-05-05] MEDS ORDERED: Sugammadex Sodium 200 MG/2 ML VIAL IV ONE (07:16)
[2025-05-05] MEDS ORDERED: Ketorolac 30 MG/ML SDV ONE (07:16)
[2025-05-05] MEDS: VANCOmycin 1 GM SDV ONE (08:14)
[2025-05-05] MEDS: Tranexamic Acid 1,000 MG/10 ML Vial ONE (08:14)
[2025-05-05] MEDS: traMADol 50 MG Tab PO ONE (12:05)
[2025-05-05 13:35] VITALS: BP 126/62; PULSE 87
== END 2025-05-05 13:05 | disposition home or self-care (01) ==
LOC: JD.SDS 06:00
PROVIDERS: ATTEND Orthopaedic Surgery
DX: M19.011 Primary osteoarthritis, right shoulder (principal); E11.9 Type 2 diabetes mellitus without complications; K21.9 Gastro-esophageal reflux disease without esophagitis; E66.01 Morbid (severe) obesity due to excess calories; Z68.39 Body mass index [BMI] 39.0-39.9, adult; Z79.899 Other long term (current) drug therapy; Z91.041 Radiographic dye allergy status; Z91.013 Allergy to seafood
CPT/HCPCS: 01638; 36415; 64415; 76000; 76000-26; 85025; 85610; 85730; 97116-GP; 97161-GP; 97530-GP; A9270-GY; C1713; C1769; C1776; J0690; J1100; J1200; J1885; J2003; J2250; J2405; J2704; J2795; J3010; J3490; J7120